=== PATIENT | female | born 1945 | race African-American/Black ===

== ENCOUNTER 2017-08-14 10:52 | Inpatient (IN) | payer MEDICARE, MEDICAID ==
[~2017-08-14] VITALS: Ht 172.7 cm; Wt 83.9 kg
[2017-08-14] MEDS ORDERED: SODIUM CHLORIDE 0.9% 1,000 ML IV ONE (13:00)
[2017-08-14 13:35] LABS: BASOPHILS % 0.6 % (0.0-2.0); CHLORIDE 102 mEq/L (98-107); EOSINOPHILS % 0.1 % (0.0-5.0); HEMATOCRIT. 44.1 % (36.0-48.0); HEMOGLOBIN. 14.6 g/dL (12.0-16.0); LYMPHOCYTES % 12.9 % (20.0-50.0); MEAN CORPUSCULAR HEMOGLOBIN 29.1 pg (28.0-32.0); MEAN CORPUSCULAR VOLUME 87.6 fL (81.0-99.0); MEAN PLATELET VOLUME 8.3 fl (7.4-10.4); MONOCYTES % 6.6 % (2.0-8.0); NEUTROPHILS % 79.8 % (40.0-76.0); PLATELET 217 x1000/uL (130-400); RED BLOOD CELL COUNT 5.03 mill/uL (4.2-5.4); RED CELL DISTRIBUTION WIDTH 14.7 % (11.6-14.6)
[2017-08-14 13:36] LABS: INR 1.2
[2017-08-14 14:20] LABS: HEPATITIS B SURFACE ANTIGEN NEGATIVE
[2017-08-14 14:49] LABS: HEPATITIS B CORE AB IGM NEGATIVE
[2017-08-14 14:50] LABS: HEPATITIS A AB IGM NEGATIVE (NEGATIVE)
[2017-08-14 17:19] LABS: CLARITY URINE CLEAR (CLEAR); COLOR URINE ORANGE (YELLOW); KETONES URINE 1+ (NEGATIVE); LEUKOCYTE ESTERASE URINE 1+ (NEGATIVE); NITRITE URINE NEGATIVE (NEGATIVE); OCCULT BLOOD URINE NEGATIVE (NEGATIVE); PROTEIN URINE TRACE (NEGATIVE); SPECIFIC GRAVITY URINE 1.023 (1.005-1.030)
[2017-08-14 17:36] LABS: *BARBITURATES SCREEN URINE NEGATIVE (NEGATIVE)
[2017-08-14 17:37] LABS: *AMPHETAMINES SCREEN URINE NEGATIVE (NEGATIVE); *BENZODIAZEPINES SCREEN URINE NEGATIVE (NEGATIVE); *COCAINE SCREEN URINE NEGATIVE (NEGATIVE); METHADONE URINE SCREEN NEGATIVE (NEGATIVE); OPIATES URINE SCREEN NEGATIVE (NEGATIVE); PHENCYCLIDINE URINE SCREEN NEGATIVE (NEGATIVE)
[2017-08-14 17:38] LABS: CANNABINOID URINE SCREEN NEGATIVE (NEGATIVE)
[2017-08-14] MEDS ORDERED: LEVOFLOXACIN 500MG PREMIX 100 ML IV ONE (18:45)
[2017-08-14 22:00] VITALS: BP 133/86
[2017-08-14 22:30] VITALS: BP 133/86
[2017-08-14] MEDS ORDERED: ASPI-1159 PO (22:38)
[2017-08-14] MEDS ORDERED: POTA-79 PO (23:35)
[2017-08-14] MEDS ORDERED: VALS320T15 PO (23:35)
[2017-08-14] MEDS ORDERED: INDO50CA2 PO (23:35)
[2017-08-14] MEDS ORDERED: AMLO10TA80 PO (23:35)
[2017-08-14] MEDS ORDERED: POTA8TAB4 PO (23:35)
[2017-08-14] MEDS ORDERED: IBUP-2030 PO (23:35)
[2017-08-14 23:56] VITALS: BP 104/65
[2017-08-15] MEDS ORDERED: DEXTROSE 50% WATER 50ML SYRINGE IV PRN
[2017-08-15] MEDS ORDERED: MAGNESIUM HYDROXIDE 400MG/5ML 30ML UDC PO PRN
[2017-08-15] MEDS: SODIUM CHLORIDE 0.45% 1,000 ML IV SCH ×2 (00:52→13:20)
[2017-08-15] MEDS ORDERED: MORPHINE SULFATE 4 MG/ML CPJ (NOT FOR IM USE) IV SCH (00:54)
[2017-08-15] MEDS ORDERED: ENOXAPARIN 100MG/ML SYR SUBCUT SCH (01:00)
[2017-08-15] MEDS: AZITHROMYCIN 500 MG in DEXT 5% WATER 250 ML IV SCH (02:33)
[2017-08-15 04:00] VITALS: BP 100/56
[2017-08-15 06:30] LABS: HEMATOCRIT. 36.2 % (36.0-48.0); MEAN CORPUSCULAR HEMOGLOBIN 29.2 pg (28.0-32.0); MEAN CORPUSCULAR VOLUME 87.9 fL (81.0-99.0); PLATELET 195 x1000/uL (130-400); RED BLOOD CELL COUNT 4.12 mill/uL (4.2-5.4); RED CELL DISTRIBUTION WIDTH 14.6 % (11.6-14.6)
[2017-08-15] MEDS: BLOOD SUGAR DIAGNOSTIC STRIP TEST SCH ×4 (06:30→22:01)
[2017-08-15 06:39] LABS: CHLORIDE 101 mEq/L (98-107)
[2017-08-15 07:58] VITALS: BP 99/63
[2017-08-15] MEDS ORDERED: MEDICATION NOT ON FORMULARY EA (Valsartan 320 MG) PO SCH (09:00)
[2017-08-15] MEDS: LOSARTAN POTASSIUM 100 MG TABLET PO SCH (09:00)
[2017-08-15] MEDS: AMLODIPINE 5MG TABLET PO SCH (09:58)
[2017-08-15 11:17] LABS: PLATELET ESTIMATE NORMAL
[2017-08-15] MEDS ORDERED: SODIUM CHLORIDE 10% FOR INH 15ML VIAL NEB INH SCH (11:30)
[2017-08-15 12:07] VITALS: BP 124/55
[2017-08-15 16:06] VITALS: BP 127/75
[2017-08-15] MEDS: PIPERACILLIN/TAZ 3.375G PREMIX 50 ML IV SCH (18:01)
[2017-08-15] MEDS: ENOXAPARIN 40MG/0.4ML SYR SUBCUT SCH (18:03)
[2017-08-15] MEDS ORDERED: LEVOFLOXACIN 500MG PREMIX 100 ML IV SCH (19:00)
[2017-08-15 19:38] VITALS: BP 115/66
[2017-08-16] VITALS: BP 99/61
[2017-08-16] MEDS: SODIUM CHLORIDE 0.45% 1,000 ML IV SCH ×3 (00:05→21:51)
[2017-08-16] MEDS: PIPERACILLIN/TAZ 3.375G PREMIX 50 ML IV SCH ×4 (00:05→23:38)
[2017-08-16] MEDS: AZITHROMYCIN 500 MG in DEXT 5% WATER 250 ML IV SCH (02:52)
[2017-08-16] MEDS: ONDANSETRON HCL 4MG/2ML VIAL IV PRN (03:48)
[2017-08-16 04:37] VITALS: BP 97/52
[2017-08-16] MEDS: BLOOD SUGAR DIAGNOSTIC STRIP TEST SCH ×4 (06:35→20:39)
[2017-08-16 07:49] VITALS: BP 96/61
[2017-08-16] MEDS: AMLODIPINE 5MG TABLET PO SCH (08:12)
[2017-08-16] MEDS: LOSARTAN POTASSIUM 100 MG TABLET PO SCH (08:13)
[2017-08-16 10:15] LABS: HEMATOCRIT. 36.7 % (36.0-48.0); MEAN CORPUSCULAR VOLUME 88.8 fL (81.0-99.0); PLATELET 198 x1000/uL (130-400); RED BLOOD CELL COUNT 4.13 mill/uL (4.2-5.4); RED CELL DISTRIBUTION WIDTH 14.4 % (11.6-14.6)
[2017-08-16] MEDS: ENOXAPARIN 40MG/0.4ML SYR SUBCUT SCH (14:00)
[2017-08-16 15:14] LABS: PLATELET ESTIMATE NORMAL
[2017-08-16 16:00] VITALS: BP 127/66
[2017-08-16 20:00] VITALS: BP 134/67
[2017-08-16] MEDS: NAPROXEN 500MG TABLET PO PRN (20:45)
[2017-08-16] MEDS: MORPHINE SULFATE 4 MG/ML CPJ (NOT FOR IM USE) IV PRN (22:08)
[2017-08-16 23:07] VITALS: BP 117/58
[2017-08-17] MEDS: AZITHROMYCIN 500 MG in DEXT 5% WATER 250 ML IV SCH (02:49)
[2017-08-17 05:03] VITALS: BP 97/53
[2017-08-17] MEDS: BLOOD SUGAR DIAGNOSTIC STRIP TEST SCH ×4 (06:26→21:00)
[2017-08-17 08:00] VITALS: BP 106/54
[2017-08-17 08:18] LABS: HEMATOCRIT. 34.1 % (36.0-48.0); HEMOGLOBIN. 11.2 g/dL (12.0-16.0); MEAN CORPUSCULAR HEMOGLOBIN 28.9 pg (28.0-32.0); MEAN CORPUSCULAR VOLUME 87.9 fL (81.0-99.0); PLATELET 197 x1000/uL (130-400); RED BLOOD CELL COUNT 3.88 mill/uL (4.2-5.4); RED CELL DISTRIBUTION WIDTH 14.3 % (11.6-14.6)
[2017-08-17] MEDS: LOSARTAN POTASSIUM 100 MG TABLET PO SCH (08:26)
[2017-08-17] MEDS: AMLODIPINE 5MG TABLET PO SCH (08:26)
[2017-08-17 08:27] LABS: PARTIAL THROMBOPLASTIN TIME 26.1 sec (23.4-31.0); PROTHROMBIN TIME 10.1 sec (9.4-11.6)
[2017-08-17] MEDS: PIPERACILLIN/TAZ 3.375G PREMIX 50 ML IV SCH (08:29)
[2017-08-17 10:37] LABS: PLATELET ESTIMATE NORMAL
[2017-08-17 12:00] VITALS: BP 108/62
[2017-08-17] MEDS: ENOXAPARIN 40MG/0.4ML SYR SUBCUT SCH (13:29)
[2017-08-17] MEDS ORDERED: IOHEXOL-300 100 ML BOTTLE ONE (15:31)
[2017-08-17] MEDS ORDERED: MIDAZOLAM HCL 2 MG/2 ML VIAL ONE (15:56)
[2017-08-17] MEDS ORDERED: FENTANYL CITRATE/PF 50MCG/ML 2ML VIAL ONE (15:56)
[2017-08-17] MEDS ORDERED: PROPOFOL 200MG/20ML VIAL IV ONE ×2 (15:56→16:45)
[2017-08-17] MEDS ORDERED: ATROPINE SULFATE 0.4MG/ML VIAL IV PRN (16:30)
[2017-08-17] MEDS ORDERED: FENTANYL CITRATE/PF 50MCG/ML 2ML VIAL IV PRN (16:30)
[2017-08-17] MEDS ORDERED: SODIUM CHLORIDE 0.9% 1,000 ML IV SCH (16:30)
[2017-08-17] MEDS ORDERED: MEPERIDINE HCL/PF 25MG/ML CPJ IV PRN (16:30)
[2017-08-17] MEDS ORDERED: ONDANSETRON HCL 4MG/2ML VIAL IV PRN (16:30)
[2017-08-17] MEDS: HYDROMORPHONE HCL/PF 2MG/ML CPJ IV PRN ×3 (18:40→19:11)
[2017-08-17] MEDS ORDERED: HYDROMORPHONE HCL/PF 2MG/ML CPJ ONE (18:42)
[2017-08-17 20:00] VITALS: BP 128/71
[2017-08-17] MEDS: ONDANSETRON HCL 4MG/2ML VIAL IV PRN (21:00)
[2017-08-17] MEDS: MORPHINE SULFATE 4 MG/ML CPJ (NOT FOR IM USE) IV PRN (23:51)
[2017-08-18] VITALS: BP 104/81
[2017-08-18] MEDS: PIPERACILLIN/TAZ 3.375G PREMIX 50 ML IV SCH ×5 (00:26→23:45)
[2017-08-18] MEDS: AZITHROMYCIN 500 MG in DEXT 5% WATER 250 ML IV SCH (03:05)
[2017-08-18 04:00] VITALS: BP 120/60
[2017-08-18] MEDS: MORPHINE SULFATE 4 MG/ML CPJ (NOT FOR IM USE) IV PRN ×3 (06:21→20:46)
[2017-08-18] MEDS: SODIUM CHLORIDE 0.45% 1,000 ML IV SCH ×3 (07:01→20:45)
[2017-08-18] MEDS: BLOOD SUGAR DIAGNOSTIC STRIP TEST SCH ×4 (07:20→20:44)
[2017-08-18 08:00] VITALS: BP 151/70
[2017-08-18] MEDS ORDERED: MORPHINE SULFATE 4 MG/ML CPJ (NOT FOR IM USE) IV PRN (08:30)
[2017-08-18] MEDS: LOSARTAN POTASSIUM 100 MG TABLET PO SCH (08:58)
[2017-08-18] MEDS: AMLODIPINE 5MG TABLET PO SCH (08:58)
[2017-08-18 12:46] VITALS: BP 147/74
[2017-08-18] MEDS: ENOXAPARIN 40MG/0.4ML SYR SUBCUT SCH (13:41)
[2017-08-18 16:00] VITALS: BP 141/76
[2017-08-18 20:00] VITALS: BP 158/84
[2017-08-18] MEDS: METRONIDAZOLE 500 MG PREMIX 100 ML IV SCH (20:45)
[2017-08-19] VITALS: BP 137/86
[2017-08-19] MEDS: AZITHROMYCIN 500 MG in DEXT 5% WATER 250 ML IV SCH (02:31)
[2017-08-19] MEDS: METRONIDAZOLE 500 MG PREMIX 100 ML IV SCH ×3 (05:28→21:17)
[2017-08-19] MEDS: BLOOD SUGAR DIAGNOSTIC STRIP TEST SCH ×4 (07:46→21:01)
[2017-08-19 08:31] VITALS: BP 144/83
[2017-08-19 08:36] LABS: CHLORIDE 103 mEq/L (98-107)
[2017-08-19] MEDS: PIPERACILLIN/TAZ 3.375G PREMIX 50 ML IV SCH ×2 (10:03→15:40)
[2017-08-19] MEDS: MORPHINE SULFATE 4 MG/ML CPJ (NOT FOR IM USE) IV PRN ×4 (10:04→21:24)
[2017-08-19] MEDS: LOSARTAN POTASSIUM 100 MG TABLET PO SCH (10:05)
[2017-08-19] MEDS: AMLODIPINE 5MG TABLET PO SCH (10:05)
[2017-08-19 10:25] LABS: INR 1.2; PARTIAL THROMBOPLASTIN TIME 27.8 sec (23.4-31.0); PROTHROMBIN TIME 12.7 sec (9.4-11.6)
[2017-08-19] MEDS ORDERED: DOCUSATE SODIUM 100MG CAPSULE PO PRN (11:30)
[2017-08-19 11:33] LABS: BASOPHILS % 0.2 % (0.0-2.0); EOSINOPHILS % 0.1 % (0.0-5.0); HEMATOCRIT. 42.4 % (36.0-48.0); HEMOGLOBIN. 13.9 g/dL (12.0-16.0); LYMPHOCYTES % 7.3 % (20.0-50.0); MEAN CORPUSCULAR HEMOGLOBIN 28.8 pg (28.0-32.0); MEAN CORPUSCULAR VOLUME 87.6 fL (81.0-99.0); MEAN PLATELET VOLUME 8.2 fl (7.4-10.4); NEUTROPHILS % 86.4 % (40.0-76.0); PLATELET 254 x1000/uL (130-400); RED BLOOD CELL COUNT 4.84 mill/uL (4.2-5.4)
[2017-08-19 12:57] VITALS: BP 140/76
[2017-08-19] MEDS: ENOXAPARIN 40MG/0.4ML SYR SUBCUT SCH (13:11)
[2017-08-19] MEDS: SODIUM CHLORIDE 0.45% 1,000 ML IV SCH (13:22)
[2017-08-19] MEDS ORDERED: DEXT 5% WATER + KCL 20MEQ/L 1,000 ML IV SCH (15:00)
[2017-08-19] MEDS: DEXT 5%/0.45% NACL KCL 20MEQ/L 1,000 ML IV SCH (16:50)
[2017-08-19 17:07] VITALS: BP 122/70
[2017-08-19 20:00] VITALS: BP 121/68
[2017-08-20] VITALS: BP 120/60
[2017-08-20] MEDS: PIPERACILLIN/TAZ 3.375G PREMIX 50 ML IV SCH ×3 (00:12→17:52)
[2017-08-20] MEDS: AZITHROMYCIN 500 MG in DEXT 5% WATER 250 ML IV SCH (03:09)
[2017-08-20] MEDS: MORPHINE SULFATE 4 MG/ML CPJ (NOT FOR IM USE) IV PRN ×3 (03:10→19:36)
[2017-08-20] MEDS: METRONIDAZOLE 500 MG PREMIX 100 ML IV SCH ×3 (05:14→22:34)
[2017-08-20] MEDS: BLOOD SUGAR DIAGNOSTIC STRIP TEST SCH ×4 (06:25→21:00)
[2017-08-20] MEDS: DEXT 5%/0.45% NACL KCL 20MEQ/L 1,000 ML IV SCH ×2 (07:51→22:34)
[2017-08-20 08:00] VITALS: BP 116/78
[2017-08-20] MEDS: AMLODIPINE 5MG TABLET PO SCH (08:00)
[2017-08-20] MEDS: LOSARTAN POTASSIUM 100 MG TABLET PO SCH (08:00)
[2017-08-20] MEDS ORDERED: LIDOCAINE HCL/PF 1% 10 MG/ML 5ML VIAL ONE (08:18)
[2017-08-20 10:09] VITALS: BP_SYST 88; BP_SYST 94; BP_DIAS 55; BP_DIAS 57
[2017-08-20 10:42] LABS: BG BASE EXCESS -3.4 mmol/L (-2.0-2.0); BG CARBOXYHEMOGLOBIN 0.9 % (0.5-1.5); BG DEOXYHEMOGLOBIN 3.6 % (0.0-5.0); BG FRACTION INSPIRED OXYGEN 28; BG HCO3 ACT 19.6 mmol/L (22.0-26.0); BG OXYGEN SATURATION 96.4 % (92.0-98.5); BG OXYHEMOGLOBIN 95.5 % (94.0-97.0); BG PCO2 29.6 mmHg (35.0-45.0); BG PH 7.438 (7.350-7.450); BG PO2 81.9 mmHg (75.0-100.0); BG SAMPLE SITE LEFT RADIAL; BG VENT MODE NASAL CANNULA
[2017-08-20] MEDS: SODIUM CHLORIDE 0.45% 1,000 ML IV SCH ×2 (11:28)
[2017-08-20 11:32] LABS: BASOPHILS % 0.4 % (0.0-2.0); EOSINOPHILS % 0.4 % (0.0-5.0); HEMATOCRIT. 29.8 % (36.0-48.0); LYMPHOCYTES % 8.8 % (20.0-50.0); MEAN CORPUSCULAR HEMOGLOBIN 29.2 pg (28.0-32.0); MEAN CORPUSCULAR VOLUME 87.4 fL (81.0-99.0); MEAN PLATELET VOLUME 7.7 fl (7.4-10.4); MONOCYTES % 6.7 % (2.0-8.0); NEUTROPHILS % 83.7 % (40.0-76.0); PLATELET 213 x1000/uL (130-400); RED BLOOD CELL COUNT 3.42 mill/uL (4.2-5.4); RED CELL DISTRIBUTION WIDTH 14.4 % (11.6-14.6)
[2017-08-20 11:44] VITALS: BP 111/63
[2017-08-20] MEDS ORDERED: SODIUM CHLORIDE 0.9% 500 ML IV ONE (11:45)
[2017-08-20 11:57] LABS: CHLORIDE 111 mEq/L (98-107)
[2017-08-20] MEDS ORDERED: LIDOCAINE HCL/PF 1% 2ML VIAL ONE (11:59)
[2017-08-20 12:04] LABS: AMYLASE 279 IU/L (25-115)
[2017-08-20] MEDS ORDERED: POTASSIUM CHLORIDE INJ 40 MEQ in DEXT 5% WATER 250 ML IV ONE (12:45)
[2017-08-20] MEDS: ENOXAPARIN 40MG/0.4ML SYR SUBCUT SCH (12:59)
[2017-08-20] MEDS: MORPHINE SULFATE 4 MG/ML CPJ (NOT FOR IM USE) IV NR ×2 (13:00→17:53)
[2017-08-20] MEDS ORDERED: KCL 20MEQ/100ML PREMIX 100 ML IV SCH (13:00)
[2017-08-20] MEDS ORDERED: CALCIUM CHLORIDE 1,000 MG in DEXT 5% WATER 90 ML IV NR (14:00)
[2017-08-20 16:00] VITALS: BP 103/62
[2017-08-20] MEDS: KCL 20MEQ/100ML PREMIX 100 ML IV SCH ×2 (17:52→19:33)
[2017-08-20 20:00] VITALS: BP 102/73
[2017-08-21] VITALS: BP 110/85
[2017-08-21] MEDS: PIPERACILLIN/TAZ 3.375G PREMIX 50 ML IV SCH ×4 (00:41→23:43)
[2017-08-21] MEDS: MORPHINE SULFATE 4 MG/ML CPJ (NOT FOR IM USE) IV PRN ×2 (01:10→06:13)
[2017-08-21] MEDS: SODIUM CHLORIDE 0.45% 1,000 ML IV SCH (02:40)
[2017-08-21] MEDS: AZITHROMYCIN 500 MG in DEXT 5% WATER 250 ML IV SCH (03:12)
[2017-08-21 04:00] VITALS: BP 106/60
[2017-08-21] MEDS: BLOOD SUGAR DIAGNOSTIC STRIP TEST SCH ×4 (05:53→21:00)
[2017-08-21] MEDS: METRONIDAZOLE 500 MG PREMIX 100 ML IV SCH ×3 (05:53→21:04)
[2017-08-21 06:17] LABS: BASOPHILS % 0.5 % (0.0-2.0); EOSINOPHILS % 1.7 % (0.0-5.0); HEMATOCRIT. 37.1 % (36.0-48.0); HEMOGLOBIN. 12.2 g/dL (12.0-16.0); LYMPHOCYTES % 8.9 % (20.0-50.0); MEAN CORPUSCULAR HEMOGLOBIN 28.7 pg (28.0-32.0); MEAN CORPUSCULAR VOLUME 87.4 fL (81.0-99.0); MEAN PLATELET VOLUME 7.8 fl (7.4-10.4); MONOCYTES % 7.2 % (2.0-8.0); NEUTROPHILS % 81.7 % (40.0-76.0); PLATELET 232 x1000/uL (130-400); RED BLOOD CELL COUNT 4.24 mill/uL (4.2-5.4); RED CELL DISTRIBUTION WIDTH 14.6 % (11.6-14.6)
[2017-08-21] MEDS: DEXT 5%/0.45% NACL KCL 20MEQ/L 1,000 ML IV SCH ×2 (06:28→08:46)
[2017-08-21 08:00] VITALS: BP 101/68
[2017-08-21] MEDS: AMLODIPINE 5MG TABLET PO SCH (08:44)
[2017-08-21] MEDS: LOSARTAN POTASSIUM 100 MG TABLET PO SCH (08:44)
[2017-08-21] MEDS: MORPHINE SULFATE 4 MG/ML CPJ (NOT FOR IM USE) IV NR ×3 (08:45→17:04)
[2017-08-21 12:00] VITALS: BP 112/63
[2017-08-21] MEDS: IPRATROPIUM/ALBUTEROL 0.5-3(2.5)MG/3ML NEB HHN SCH ×4 (13:03→23:54)
[2017-08-21 16:00] VITALS: BP 115/71
[2017-08-21 20:00] VITALS: BP 110/64
[2017-08-22] VITALS: BP 116/56
[2017-08-22] MEDS: IPRATROPIUM/ALBUTEROL 0.5-3(2.5)MG/3ML NEB HHN SCH ×7 (03:15→20:18)
[2017-08-22] MEDS: MORPHINE SULFATE 4 MG/ML CPJ (NOT FOR IM USE) IV PRN ×5 (03:56→18:50)
[2017-08-22 04:00] VITALS: BP 106/52
[2017-08-22] MEDS: METRONIDAZOLE 500 MG PREMIX 100 ML IV SCH ×3 (06:04→21:05)
[2017-08-22] MEDS: BLOOD SUGAR DIAGNOSTIC STRIP TEST SCH ×4 (06:06→21:13)
[2017-08-22 08:40] VITALS: BP 102/53
[2017-08-22] MEDS: PIPERACILLIN/TAZ 3.375G PREMIX 50 ML IV SCH ×3 (08:40→18:13)
[2017-08-22] MEDS: AMLODIPINE 5MG TABLET PO SCH (08:40)
[2017-08-22] MEDS: LOSARTAN POTASSIUM 100 MG TABLET PO SCH (08:43)
[2017-08-22 12:03] VITALS: BP 111/69
[2017-08-22] MEDS ORDERED: FUROSEMIDE 100MG/10ML VIAL IVP NR (12:45)
[2017-08-22] MEDS: DEXT 5%/0.45% NACL KCL 20MEQ/L 1,000 ML IV SCH (13:35)
[2017-08-22 13:49] LABS: HEMATOCRIT. 31.5 % (36.0-48.0); HEMOGLOBIN. 10.4 g/dL (12.0-16.0); MEAN CORPUSCULAR HEMOGLOBIN 28.6 pg (28.0-32.0); MEAN CORPUSCULAR VOLUME 87.1 fL (81.0-99.0); MEAN PLATELET VOLUME 7.7 fl (7.4-10.4); PLATELET 234 x1000/uL (130-400); RED BLOOD CELL COUNT 3.62 mill/uL (4.2-5.4)
[2017-08-22 13:55] LABS: INR 1.2; PARTIAL THROMBOPLASTIN TIME 31.9 sec (23.4-31.0); PROTHROMBIN TIME 12.7 sec (9.4-11.6)
[2017-08-22 14:15] LABS: PLATELET ESTIMATE NORMAL
[2017-08-22 17:07] VITALS: BP 107/66
[2017-08-22 20:00] VITALS: BP 112/71
[2017-08-23] VITALS: BP 113/68
[2017-08-23] MEDS: MORPHINE SULFATE 4 MG/ML CPJ (NOT FOR IM USE) IV PRN (00:28)
[2017-08-23] MEDS: IPRATROPIUM/ALBUTEROL 0.5-3(2.5)MG/3ML NEB HHN SCH ×6 (00:42→19:46)
[2017-08-23] MEDS: NAPROXEN 500MG TABLET PO PRN (02:09)
[2017-08-23] MEDS: PIPERACILLIN/TAZ 3.375G PREMIX 50 ML IV SCH ×3 (02:09→17:34)
[2017-08-23 04:00] VITALS: BP 108/63
[2017-08-23] MEDS: DEXT 5%/0.45% NACL KCL 20MEQ/L 1,000 ML IV SCH ×2 (05:22→17:34)
[2017-08-23] MEDS: METRONIDAZOLE 500 MG PREMIX 100 ML IV SCH ×3 (05:22→21:45)
[2017-08-23] MEDS: BLOOD SUGAR DIAGNOSTIC STRIP TEST SCH ×4 (07:13→21:45)
[2017-08-23 07:56] VITALS: BP 102/58
[2017-08-23] MEDS: AMLODIPINE 5MG TABLET PO SCH (09:00)
[2017-08-23 10:12] LABS: HEMOGLOBIN. 10.4 g/dL (12.0-16.0); MEAN CORPUSCULAR HEMOGLOBIN 28.2 pg (28.0-32.0); MEAN CORPUSCULAR VOLUME 86.9 fL (81.0-99.0); MEAN PLATELET VOLUME 7.7 fl (7.4-10.4); PLATELET 249 x1000/uL (130-400); RED BLOOD CELL COUNT 3.68 mill/uL (4.2-5.4); RED CELL DISTRIBUTION WIDTH 15.2 % (11.6-14.6)
[2017-08-23] MEDS: LOSARTAN POTASSIUM 100 MG TABLET PO SCH (10:15)
[2017-08-23 11:42] LABS: PLATELET ESTIMATE NORMAL
[2017-08-23 12:23] VITALS: BP 110/65
[2017-08-23 15:46] VITALS: BP 129/76
[2017-08-23 20:00] VITALS: BP 122/65
[2017-08-23] MEDS ORDERED: TOTAL PARENTERAL NUTRITION IV SCH ×2 (21:00)
[2017-08-24] VITALS (7 sets, daily range): BP systolic 117–164; BP diastolic 67–85
[2017-08-24] MEDS: IPRATROPIUM/ALBUTEROL 0.5-3(2.5)MG/3ML NEB HHN SCH ×6 (00:12→20:48)
[2017-08-24] MEDS: PIPERACILLIN/TAZ 3.375G PREMIX 50 ML IV SCH ×3 (02:19→18:07)
[2017-08-24] MEDS: METRONIDAZOLE 500 MG PREMIX 100 ML IV SCH ×3 (05:30→23:06)
[2017-08-24] MEDS: BLOOD SUGAR DIAGNOSTIC STRIP TEST SCH ×4 (06:35→20:41)
[2017-08-24 07:28] LABS: HEMATOCRIT. 35.9 % (36.0-48.0); HEMOGLOBIN. 11.7 g/dL (12.0-16.0); MEAN CORPUSCULAR HEMOGLOBIN 28.4 pg (28.0-32.0); MEAN CORPUSCULAR VOLUME 87.1 fL (81.0-99.0); MEAN PLATELET VOLUME 7.6 fl (7.4-10.4); PLATELET 251 x1000/uL (130-400); RED BLOOD CELL COUNT 4.13 mill/uL (4.2-5.4); RED CELL DISTRIBUTION WIDTH 15.2 % (11.6-14.6)
[2017-08-24 07:56] LABS: PHOSPHORUS 1.3 mg/dL (2.5-4.9)
[2017-08-24 09:13] LABS: PLATELET ESTIMATE NORMAL
[2017-08-24] MEDS: LOSARTAN POTASSIUM 100 MG TABLET PO SCH (09:36)
[2017-08-24] MEDS: AMLODIPINE 5MG TABLET PO SCH (09:37)
[2017-08-24] MEDS ORDERED: FUROSEMIDE 40MG/4ML VIAL IVP NR (16:00)
[2017-08-24] MEDS: DILTIAZEM HCL 30MG TABLET PO SCH (18:08)
[2017-08-24] MEDS: INSULIN LISPRO 100 UNITS/ML SUBCUT SCH ×3 (18:10→21:30)
[2017-08-24] MEDS: TOTAL PARENTERAL NUTRITION IV SCH (21:31)
[2017-08-25 00:03] VITALS: BP 139/70
[2017-08-25] MEDS: IPRATROPIUM/ALBUTEROL 0.5-3(2.5)MG/3ML NEB HHN SCH ×6 (00:35→20:40)
[2017-08-25] MEDS: DILTIAZEM HCL 30MG TABLET PO SCH ×4 (00:40→18:52)
[2017-08-25] MEDS: PIPERACILLIN/TAZ 3.375G PREMIX 50 ML IV SCH ×3 (02:21→18:52)
[2017-08-25 04:42] VITALS: BP 144/81
[2017-08-25] MEDS: METRONIDAZOLE 500 MG PREMIX 100 ML IV SCH ×2 (06:22→13:58)
[2017-08-25] MEDS: BLOOD SUGAR DIAGNOSTIC STRIP TEST SCH ×4 (06:22→21:31)
[2017-08-25] MEDS: INSULIN LISPRO 100 UNITS/ML SUBCUT SCH ×4 (06:59→21:40)
[2017-08-25 07:33] VITALS: BP 142/71
[2017-08-25 09:21] LABS: BASOPHILS % 0.7 % (0.0-2.0); EOSINOPHILS % 1.9 % (0.0-5.0); HEMATOCRIT. 33.9 % (36.0-48.0); HEMOGLOBIN. 11.1 g/dL (12.0-16.0); LYMPHOCYTES % 8.1 % (20.0-50.0); MEAN CORPUSCULAR HEMOGLOBIN 28.6 pg (28.0-32.0); MEAN CORPUSCULAR VOLUME 87.2 fL (81.0-99.0); MONOCYTES % 10.7 % (2.0-8.0); NEUTROPHILS % 78.6 % (40.0-76.0); PLATELET 223 x1000/uL (130-400); RED BLOOD CELL COUNT 3.88 mill/uL (4.2-5.4); RED CELL DISTRIBUTION WIDTH 15.4 % (11.6-14.6)
[2017-08-25] MEDS: LOSARTAN POTASSIUM 100 MG TABLET PO SCH (09:25)
[2017-08-25 11:49] VITALS: BP 148/84
[2017-08-25] MEDS ORDERED: SODIUM CHLORIDE 0.45% 1,000 ML IV SCH ×2 (12:30→16:45)
[2017-08-25] MEDS ORDERED: CLONIDINE 0.1MG TABLET PO PRN (12:45)
[2017-08-25] MEDS ORDERED: CLONIDINE 0.2MG TABLET PO PRN (12:45)
[2017-08-25 15:37] VITALS: BP 141/81
[2017-08-25 20:42] VITALS: BP 132/75
[2017-08-25] MEDS: TOTAL PARENTERAL NUTRITION IV SCH (21:00)
[2017-08-25] MEDS ORDERED: TOTAL PARENTERAL NUTRITION IV SCH (21:00)
[2017-08-26] VITALS: BP 146/76
[2017-08-26] MEDS: IPRATROPIUM/ALBUTEROL 0.5-3(2.5)MG/3ML NEB HHN SCH ×6 (00:51→21:45)
[2017-08-26] MEDS: DILTIAZEM HCL 30MG TABLET PO SCH ×4 (00:54→18:29)
[2017-08-26] MEDS ORDERED: PIPERACILLIN/TAZ 3.375G PREMIX 50 ML IV SCH (03:00)
[2017-08-26] MEDS: PIPERACILLIN/TAZ 2.25G PREMIX 50 ML IV SCH ×3 (03:32→18:28)
[2017-08-26 04:20] VITALS: BP 110/62
[2017-08-26 06:37] LABS: BASOPHILS % 0.4 % (0.0-2.0); HEMATOCRIT. 31.9 % (36.0-48.0); HEMOGLOBIN. 10.7 g/dL (12.0-16.0); LYMPHOCYTES % 9.7 % (20.0-50.0); MEAN CORPUSCULAR VOLUME 86.6 fL (81.0-99.0); MEAN PLATELET VOLUME 7.9 fl (7.4-10.4); MONOCYTES % 10.6 % (2.0-8.0); NEUTROPHILS % 77.3 % (40.0-76.0); PLATELET 217 x1000/uL (130-400); RED BLOOD CELL COUNT 3.69 mill/uL (4.2-5.4); RED CELL DISTRIBUTION WIDTH 15.5 % (11.6-14.6)
[2017-08-26] MEDS: BLOOD SUGAR DIAGNOSTIC STRIP TEST SCH ×4 (06:46→21:00)
[2017-08-26] MEDS: INSULIN LISPRO 100 UNITS/ML SUBCUT SCH ×4 (07:01→22:23)
[2017-08-26 08:00] VITALS: BP 122/68
[2017-08-26] MEDS: LOSARTAN POTASSIUM 100 MG TABLET PO SCH (09:01)
[2017-08-26 12:00] VITALS: BP 143/72
[2017-08-26 16:00] VITALS: BP 159/80
[2017-08-26 20:03] VITALS: BP 139/80
[2017-08-26] MEDS ORDERED: TOTAL PARENTERAL NUTRITION IV SCH (21:00)
[2017-08-27 00:03] VITALS: BP 129/69
[2017-08-27] MEDS: IPRATROPIUM/ALBUTEROL 0.5-3(2.5)MG/3ML NEB HHN SCH ×6 (00:57→20:07)
[2017-08-27] MEDS: PIPERACILLIN/TAZ 2.25G PREMIX 50 ML IV SCH ×3 (02:15→18:47)
[2017-08-27 05:34] VITALS: BP 128/69
[2017-08-27] MEDS: BLOOD SUGAR DIAGNOSTIC STRIP TEST SCH ×4 (07:04→20:00)
[2017-08-27] MEDS: DILTIAZEM HCL 30MG TABLET PO SCH ×4 (07:05→18:47)
[2017-08-27 07:24] VITALS: BP 139/77
[2017-08-27 08:42] LABS: BASOPHILS % 0.3 % (0.0-2.0); EOSINOPHILS % 2.3 % (0.0-5.0); HEMATOCRIT. 32.2 % (36.0-48.0); HEMOGLOBIN. 10.5 g/dL (12.0-16.0); LYMPHOCYTES % 9.8 % (20.0-50.0); MEAN CORPUSCULAR HEMOGLOBIN 28.3 pg (28.0-32.0); MEAN CORPUSCULAR VOLUME 86.6 fL (81.0-99.0); MEAN PLATELET VOLUME 7.9 fl (7.4-10.4); MONOCYTES % 9.3 % (2.0-8.0); NEUTROPHILS % 78.3 % (40.0-76.0); PLATELET 249 x1000/uL (130-400); RED BLOOD CELL COUNT 3.72 mill/uL (4.2-5.4); RED CELL DISTRIBUTION WIDTH 15.3 % (11.6-14.6)
[2017-08-27] MEDS: LOSARTAN POTASSIUM 100 MG TABLET PO SCH (10:56)
[2017-08-27] MEDS: INSULIN LISPRO 100 UNITS/ML SUBCUT SCH ×2 (10:58→13:07)
[2017-08-27 11:58] VITALS: BP 165/88
[2017-08-27 15:40] VITALS: BP 157/85
[2017-08-27] MEDS ORDERED: IPRATROPIUM/ALBUTEROL 0.5-3(2.5)MG/3ML NEB HHN SCH (16:00)
[2017-08-27 16:33] LABS: BG BASE EXCESS -7.1 mmol/L (-2.0-2.0); BG CARBOXYHEMOGLOBIN 0.3 % (0.5-1.5); BG DEOXYHEMOGLOBIN 6.2 % (0.0-5.0); BG FRACTION INSPIRED OXYGEN 28; BG HCO3 ACT 15.7 mmol/L (22.0-26.0); BG METHEMOGLOBIN 0.1 % (0.0-1.5); BG OXYGEN SATURATION 93.8 % (92.0-98.5); BG OXYHEMOGLOBIN 93.4 % (94.0-97.0); BG PCO2 24.3 mmHg (35.0-45.0); BG PH 7.427 (7.350-7.450); BG PO2 69.8 mmHg (75.0-100.0); BG SAMPLE SITE RIGHT RADIAL; BG TOTAL HEMOGLOBIN 11.9 g/dL (12.0-18.0); BG VENT MODE NASAL CANNULA
[2017-08-27] MEDS ORDERED: IPRATROPIUM/ALBUTEROL 0.5-3(2.5)MG/3ML NEB HHN PRN (18:15)
[2017-08-27] MEDS: INSULIN REGULAR HUMAN (HIGH DOSE) 100 UNITS/ML 3ML VIAL SUBCUT SCH (18:54)
[2017-08-27 19:10] LABS: PHOSPHORUS 2.7 mg/dL (2.5-4.9)
[2017-08-27 20:00] VITALS: BP 128/80
[2017-08-27] MEDS ORDERED: TOTAL PARENTERAL NUTRITION IV SCH (21:00)
[2017-08-28] VITALS: BP 139/75
[2017-08-28] MEDS: BLOOD SUGAR DIAGNOSTIC STRIP TEST SCH ×2 (00:23→06:35)
[2017-08-28] MEDS: DILTIAZEM HCL 30MG TABLET PO SCH ×4 (00:24→17:53)
[2017-08-28] MEDS: INSULIN REGULAR HUMAN (HIGH DOSE) 100 UNITS/ML 3ML VIAL SUBCUT SCH ×2 (00:28→06:39)
[2017-08-28] MEDS: IPRATROPIUM/ALBUTEROL 0.5-3(2.5)MG/3ML NEB HHN SCH ×6 (00:41→20:45)
[2017-08-28] MEDS: PIPERACILLIN/TAZ 2.25G PREMIX 50 ML IV SCH ×3 (03:00→17:52)
[2017-08-28 04:00] VITALS: BP 153/80
[2017-08-28 08:00] VITALS: BP 142/76
[2017-08-28] MEDS ORDERED: LIDOCAINE HCL/PF 1% 10 MG/ML 5ML VIAL ONE (08:07)
[2017-08-28 08:38] LABS: BASOPHILS % 0.6 % (0.0-2.0); EOSINOPHILS % 1.9 % (0.0-5.0); HEMATOCRIT. 32.5 % (36.0-48.0); HEMOGLOBIN. 10.7 g/dL (12.0-16.0); LYMPHOCYTES % 9.4 % (20.0-50.0); MEAN CORPUSCULAR HEMOGLOBIN 28.2 pg (28.0-32.0); MEAN CORPUSCULAR VOLUME 86.1 fL (81.0-99.0); MEAN PLATELET VOLUME 8.1 fl (7.4-10.4); MONOCYTES % 6.9 % (2.0-8.0); NEUTROPHILS % 81.2 % (40.0-76.0); PLATELET 258 x1000/uL (130-400); RED BLOOD CELL COUNT 3.78 mill/uL (4.2-5.4); RED CELL DISTRIBUTION WIDTH 15.4 % (11.6-14.6)
[2017-08-28 08:49] LABS: PHOSPHORUS 2.5 mg/dL (2.5-4.9)
[2017-08-28] MEDS: LOSARTAN POTASSIUM 100 MG TABLET PO SCH (09:00)
[2017-08-28] MEDS: ENOXAPARIN 40MG/0.4ML SYR SUBCUT SCH (10:42)
[2017-08-28] MEDS: LACTOBACILLUS GG CAPSULE PO SCH (10:43)
[2017-08-28 11:24] VITALS: BP 173/91
[2017-08-28] MEDS: INSULIN REGULAR (HUMULIN R) 300UNITS/3ML SUBCUT SCH ×3 (11:24→20:40)
[2017-08-28] MEDS ORDERED: HEPARIN SODIUM 1,000 UNIT/1ML VIAL IV NR (12:45)
[2017-08-28 15:54] VITALS: BP 129/71
[2017-08-28 20:00] VITALS: BP 140/73
[2017-08-28] MEDS ORDERED: TOTAL PARENTERAL NUTRITION IV SCH (21:00)
[2017-08-29] VITALS (7 sets, daily range): BP systolic 116–151; BP diastolic 61–83
[2017-08-29] MEDS: INSULIN REGULAR (HUMULIN R) 300UNITS/3ML SUBCUT SCH ×7 (00:07→22:11)
[2017-08-29] MEDS: INSULIN NPH (HUMULIN-N) 100 UNITS/ML 3ML VIAL SUBCUT SCH ×3 (00:08→22:10)
[2017-08-29] MEDS: DILTIAZEM HCL 30MG TABLET PO SCH ×4 (00:17→19:07)
[2017-08-29] MEDS: IPRATROPIUM/ALBUTEROL 0.5-3(2.5)MG/3ML NEB HHN SCH ×6 (01:24→20:24)
[2017-08-29] MEDS: PIPERACILLIN/TAZ 2.25G PREMIX 50 ML IV SCH ×3 (02:08→19:32)
[2017-08-29 07:36] LABS: BASOPHILS % 0.5 % (0.0-2.0); EOSINOPHILS % 2.3 % (0.0-5.0); HEMATOCRIT. 32.7 % (36.0-48.0); HEMOGLOBIN. 10.9 g/dL (12.0-16.0); LYMPHOCYTES % 10.9 % (20.0-50.0); MEAN CORPUSCULAR HEMOGLOBIN 28.5 pg (28.0-32.0); MEAN PLATELET VOLUME 8.1 fl (7.4-10.4); MONOCYTES % 7.9 % (2.0-8.0); NEUTROPHILS % 78.4 % (40.0-76.0); PLATELET 203 x1000/uL (130-400); RED BLOOD CELL COUNT 3.84 mill/uL (4.2-5.4)
[2017-08-29 07:51] LABS: PHOSPHORUS 3.4 mg/dL (2.5-4.9)
[2017-08-29 08:09] LABS: AMYLASE 211 IU/L (25-115)
[2017-08-29] MEDS: ENOXAPARIN 40MG/0.4ML SYR SUBCUT SCH (09:58)
[2017-08-29] MEDS: LACTOBACILLUS GG CAPSULE PO SCH (09:59)
[2017-08-29] MEDS: LOSARTAN POTASSIUM 100 MG TABLET PO SCH (09:59)
[2017-08-29] MEDS ORDERED: INSULIN REGULAR (HUMULIN R) 300UNITS/3ML SUBCUT SCH (16:00)
[2017-08-29] MEDS ORDERED: MORPHINE SULFATE 4 MG/ML CPJ (NOT FOR IM USE) IV PRN (16:30)
[2017-08-29] MEDS: BLOOD SUGAR DIAGNOSTIC STRIP TEST SCH (20:00)
[2017-08-29] MEDS ORDERED: TOTAL PARENTERAL NUTRITION IV SCH (21:00)
[2017-08-30 00:14] VITALS: BP 129/72
[2017-08-30] MEDS: DILTIAZEM HCL 60MG TABLET PO SCH ×4 (00:23→18:08)
[2017-08-30] MEDS: IPRATROPIUM/ALBUTEROL 0.5-3(2.5)MG/3ML NEB HHN SCH ×6 (00:37→20:37)
[2017-08-30] MEDS: BLOOD SUGAR DIAGNOSTIC STRIP TEST SCH ×6 (00:38→22:00)
[2017-08-30] MEDS: INSULIN REGULAR (HUMULIN R) 300UNITS/3ML SUBCUT SCH ×6 (00:39→22:02)
[2017-08-30] MEDS: PIPERACILLIN/TAZ 2.25G PREMIX 50 ML IV SCH ×3 (02:30→18:08)
[2017-08-30 04:00] VITALS: BP 141/71
[2017-08-30 07:12] LABS: BASOPHILS % 0.8 % (0.0-2.0); EOSINOPHILS % 3.2 % (0.0-5.0); HEMATOCRIT. 30.6 % (36.0-48.0); HEMOGLOBIN. 10.4 g/dL (12.0-16.0); LYMPHOCYTES % 14.1 % (20.0-50.0); MEAN CORPUSCULAR VOLUME 85.2 fL (81.0-99.0); MEAN PLATELET VOLUME 7.9 fl (7.4-10.4); MONOCYTES % 10.1 % (2.0-8.0); NEUTROPHILS % 71.8 % (40.0-76.0); PLATELET 129 x1000/uL (130-400); RED BLOOD CELL COUNT 3.59 mill/uL (4.2-5.4); RED CELL DISTRIBUTION WIDTH 15.2 % (11.6-14.6)
[2017-08-30 07:22] VITALS: BP 137/68
[2017-08-30] MEDS: LOSARTAN POTASSIUM 100 MG TABLET PO SCH (08:05)
[2017-08-30] MEDS: LACTOBACILLUS GG CAPSULE PO SCH (08:05)
[2017-08-30] MEDS: INSULIN NPH (HUMULIN-N) 100 UNITS/ML 3ML VIAL SUBCUT SCH ×2 (09:11→21:00)
[2017-08-30] MEDS: ENOXAPARIN 40MG/0.4ML SYR SUBCUT SCH (09:12)
[2017-08-30 11:28] VITALS: BP 133/84
[2017-08-30 16:03] VITALS: BP 144/76
[2017-08-30] MEDS: SODIUM CHLORIDE 0.45% 1,000 ML IV SCH (17:03)
[2017-08-30 19:54] VITALS: BP 130/72
[2017-08-30] MEDS ORDERED: TOTAL PARENTERAL NUTRITION IV SCH (21:00)
[2017-08-31] MEDS: BLOOD SUGAR DIAGNOSTIC STRIP TEST SCH ×7 (00:01→23:39)
[2017-08-31] MEDS: DILTIAZEM HCL 60MG TABLET PO SCH ×5 (00:01→23:33)
[2017-08-31 00:04] VITALS: BP 133/76
[2017-08-31] MEDS: IPRATROPIUM/ALBUTEROL 0.5-3(2.5)MG/3ML NEB HHN SCH ×6 (00:15→20:11)
[2017-08-31] MEDS: PIPERACILLIN/TAZ 2.25G PREMIX 50 ML IV SCH ×3 (02:10→21:24)
[2017-08-31 04:00] VITALS: BP 113/85
[2017-08-31] MEDS: INSULIN REGULAR (HUMULIN R) 300UNITS/3ML SUBCUT SCH ×7 (04:00→23:39)
[2017-08-31 07:54] LABS: BASOPHILS % 0.6 % (0.0-2.0); EOSINOPHILS % 3.7 % (0.0-5.0); HEMOGLOBIN. 10.3 g/dL (12.0-16.0); LYMPHOCYTES % 15.9 % (20.0-50.0); MEAN CORPUSCULAR HEMOGLOBIN 28.6 pg (28.0-32.0); MEAN CORPUSCULAR VOLUME 86.3 fL (81.0-99.0); MEAN PLATELET VOLUME 7.9 fl (7.4-10.4); MONOCYTES % 8.3 % (2.0-8.0); NEUTROPHILS % 71.5 % (40.0-76.0); PLATELET 144 x1000/uL (130-400); RED BLOOD CELL COUNT 3.59 mill/uL (4.2-5.4); RED CELL DISTRIBUTION WIDTH 14.7 % (11.6-14.6)
[2017-08-31 08:00] VITALS: BP 130/78
[2017-08-31] MEDS: LOSARTAN POTASSIUM 100 MG TABLET PO SCH (08:59)
[2017-08-31] MEDS: TRAMADOL 50MG TABLET PO PRN (08:59)
[2017-08-31] MEDS: LACTOBACILLUS GG CAPSULE PO SCH (08:59)
[2017-08-31] MEDS: INSULIN NPH (HUMULIN-N) 100 UNITS/ML 3ML VIAL SUBCUT SCH ×2 (09:04→21:09)
[2017-08-31 09:14] LABS: CHLORIDE 105 mEq/L (98-107)
[2017-08-31 09:38] LABS: AMYLASE 153 IU/L (25-115)
[2017-08-31 09:40] LABS: PHOSPHORUS 2.5 mg/dL (2.5-4.9)
[2017-08-31 12:00] VITALS: BP 142/90
[2017-08-31] MEDS: SODIUM CHLORIDE 0.45% 1,000 ML IV SCH (15:59)
[2017-08-31 16:00] VITALS: BP 132/82
[2017-08-31] MEDS ORDERED: MAGNESIUM 1 G PREMIX 100 ML IV NR (16:00)
[2017-08-31 20:00] VITALS: BP 142/79
[2017-08-31] MEDS ORDERED: TOTAL PARENTERAL NUTRITION IV SCH (21:00)
[2017-09-01] VITALS (7 sets, daily range): BP systolic 119–157; BP diastolic 61–89
[2017-09-01] MEDS: IPRATROPIUM/ALBUTEROL 0.5-3(2.5)MG/3ML NEB HHN SCH ×6 (00:05→21:11)
[2017-09-01] MEDS: PIPERACILLIN/TAZ 2.25G PREMIX 50 ML IV SCH ×2 (04:07→11:08)
[2017-09-01] MEDS: INSULIN REGULAR (HUMULIN R) 300UNITS/3ML SUBCUT SCH ×6 (04:18→23:52)
[2017-09-01] MEDS: BLOOD SUGAR DIAGNOSTIC STRIP TEST SCH ×6 (04:19→23:54)
[2017-09-01] MEDS: DILTIAZEM HCL 60MG TABLET PO SCH (06:11)
[2017-09-01] MEDS: LOSARTAN POTASSIUM 100 MG TABLET PO SCH (08:57)
[2017-09-01] MEDS: LACTOBACILLUS GG CAPSULE PO SCH (08:57)
[2017-09-01] MEDS: INSULIN NPH (HUMULIN-N) 100 UNITS/ML 3ML VIAL SUBCUT SCH ×2 (09:08→21:04)
[2017-09-01 10:29] LABS: BASOPHILS % 1.3 % (0.0-2.0); EOSINOPHILS % 5.9 % (0.0-5.0); HEMATOCRIT. 31.4 % (36.0-48.0); HEMOGLOBIN. 10.3 g/dL (12.0-16.0); LYMPHOCYTES % 20.5 % (20.0-50.0); MEAN CORPUSCULAR HEMOGLOBIN 28.6 pg (28.0-32.0); MEAN CORPUSCULAR VOLUME 87.2 fL (81.0-99.0); MEAN PLATELET VOLUME 7.4 fl (7.4-10.4); MONOCYTES % 7.9 % (2.0-8.0); NEUTROPHILS % 64.4 % (40.0-76.0); PLATELET 146 x1000/uL (130-400); RED CELL DISTRIBUTION WIDTH 14.7 % (11.6-14.6)
[2017-09-01 11:00] LABS: PHOSPHORUS 2.6 mg/dL (2.5-4.9)
[2017-09-01 11:06] LABS: CHLORIDE 104 mEq/L (98-107)
[2017-09-01] MEDS: PIPERACILLIN/TAZ 3.375G PREMIX 50 ML IV SCH ×2 (18:23→23:51)
[2017-09-01] MEDS: DILTIAZEM HCL 90MG TABLET PO SCH ×2 (18:23→23:51)
[2017-09-01] MEDS ORDERED: MAGNESIUM 1 G PREMIX 100 ML IV NR (20:00)
[2017-09-01] MEDS: ONDANSETRON HCL 4MG/2ML VIAL IV PRN (20:49)
[2017-09-01] MEDS: TRAMADOL 50MG TABLET PO PRN (20:59)
[2017-09-01] MEDS: SODIUM CHLORIDE 0.45% 1,000 ML IV SCH (21:00)
[2017-09-01] MEDS ORDERED: TOTAL PARENTERAL NUTRITION IV SCH (21:00)
[2017-09-01] MEDS ORDERED: DEXT 10% WATER 1,000 ML IV SCH (21:00)
[2017-09-02] MEDS: IPRATROPIUM/ALBUTEROL 0.5-3(2.5)MG/3ML NEB HHN SCH ×6 (00:17→19:45)
[2017-09-02] MEDS: DILTIAZEM HCL 90MG TABLET PO SCH ×3 (04:43→18:35)
[2017-09-02] MEDS: INSULIN REGULAR (HUMULIN R) 300UNITS/3ML SUBCUT SCH ×5 (04:49→22:19)
[2017-09-02] MEDS: BLOOD SUGAR DIAGNOSTIC STRIP TEST SCH ×5 (04:50→20:00)
[2017-09-02 05:30] VITALS: BP 111/60
[2017-09-02 08:00] VITALS: BP 126/68
[2017-09-02] MEDS: LOSARTAN POTASSIUM 100 MG TABLET PO SCH (09:51)
[2017-09-02] MEDS: LACTOBACILLUS GG CAPSULE PO SCH (09:54)
[2017-09-02] MEDS: INSULIN NPH (HUMULIN-N) 100 UNITS/ML 3ML VIAL SUBCUT SCH ×2 (10:22→22:18)
[2017-09-02 11:04] LABS: CHLORIDE 103 mEq/L (98-107)
[2017-09-02 11:19] LABS: PHOSPHORUS 2.9 mg/dL (2.5-4.9)
[2017-09-02 12:00] VITALS: BP 141/72
[2017-09-02] MEDS: PIPERACILLIN/TAZ 3.375G PREMIX 50 ML IV SCH ×2 (13:00→22:13)
[2017-09-02] MEDS: SODIUM CHLORIDE 0.45% 1,000 ML IV SCH (15:45)
[2017-09-02 16:00] VITALS: BP 135/74
[2017-09-02 20:40] VITALS: BP 138/76
[2017-09-02] MEDS ORDERED: TOTAL PARENTERAL NUTRITION IV SCH (21:00)
[2017-09-02] MEDS ORDERED: MAGNESIUM 2 G PREMIX 50 ML IV ONE (21:15)
[2017-09-02] MEDS ORDERED: MAGNESIUM 1 G PREMIX 100 ML IV NR (23:00)
[2017-09-03] VITALS: BP 133/82
[2017-09-03] MEDS: IPRATROPIUM/ALBUTEROL 0.5-3(2.5)MG/3ML NEB HHN SCH ×7 (00:30→23:12)
[2017-09-03] MEDS ORDERED: MAGNESIUM 1 G PREMIX 100 ML IV NR (01:00)
[2017-09-03] MEDS: DILTIAZEM HCL 90MG TABLET PO SCH ×4 (01:56→18:59)
[2017-09-03] MEDS: INSULIN REGULAR (HUMULIN R) 300UNITS/3ML SUBCUT SCH ×6 (02:06→20:00)
[2017-09-03 04:00] VITALS: BP 142/70
[2017-09-03] MEDS: BLOOD SUGAR DIAGNOSTIC STRIP TEST SCH ×6 (04:00→20:45)
[2017-09-03 07:42] LABS: BASOPHILS % 1.1 % (0.0-2.0); EOSINOPHILS % 4.3 % (0.0-5.0); HEMATOCRIT. 31.1 % (36.0-48.0); HEMOGLOBIN. 10.2 g/dL (12.0-16.0); LYMPHOCYTES % 27.3 % (20.0-50.0); MEAN CORPUSCULAR HEMOGLOBIN 28.7 pg (28.0-32.0); MEAN CORPUSCULAR VOLUME 87.1 fL (81.0-99.0); MEAN PLATELET VOLUME 7.7 fl (7.4-10.4); MONOCYTES % 9.7 % (2.0-8.0); NEUTROPHILS % 57.6 % (40.0-76.0); PLATELET 133 x1000/uL (130-400); RED BLOOD CELL COUNT 3.57 mill/uL (4.2-5.4); RED CELL DISTRIBUTION WIDTH 14.7 % (11.6-14.6)
[2017-09-03 08:43] LABS: CHLORIDE 104 mEq/L (98-107)
[2017-09-03 08:46] VITALS: BP 140/76
[2017-09-03] MEDS: INSULIN NPH (HUMULIN-N) 100 UNITS/ML 3ML VIAL SUBCUT SCH ×2 (09:00→20:55)
[2017-09-03] MEDS: LOSARTAN POTASSIUM 100 MG TABLET PO SCH (09:58)
[2017-09-03] MEDS: LACTOBACILLUS GG CAPSULE PO SCH (09:58)
[2017-09-03 12:40] VITALS: BP 161/85
[2017-09-03] MEDS: SODIUM CHLORIDE 0.45% 1,000 ML IV SCH (15:45)
[2017-09-03 16:12] VITALS: BP 138/74
[2017-09-03 20:13] VITALS: BP 114/75
[2017-09-03] MEDS: NAPROXEN 500MG TABLET PO PRN (20:53)
[2017-09-03] MEDS: TOTAL PARENTERAL NUTRITION IV SCH (22:54)
[2017-09-04 00:12] VITALS: BP 135/75
[2017-09-04] MEDS: BLOOD SUGAR DIAGNOSTIC STRIP TEST SCH ×7 (00:47→23:46)
[2017-09-04] MEDS: DILTIAZEM HCL 90MG TABLET PO SCH ×5 (00:55→23:45)
[2017-09-04] MEDS: INSULIN REGULAR (HUMULIN R) 300UNITS/3ML SUBCUT SCH ×7 (00:58→23:46)
[2017-09-04] MEDS: IPRATROPIUM/ALBUTEROL 0.5-3(2.5)MG/3ML NEB HHN SCH ×4 (03:52→21:39)
[2017-09-04 04:00] VITALS: BP 110/68
[2017-09-04 07:41] VITALS: BP 138/68
[2017-09-04] MEDS: LOSARTAN POTASSIUM 100 MG TABLET PO SCH (09:27)
[2017-09-04] MEDS: LACTOBACILLUS GG CAPSULE PO SCH (09:27)
[2017-09-04] MEDS: INSULIN NPH (HUMULIN-N) 100 UNITS/ML 3ML VIAL SUBCUT SCH ×2 (09:39→21:34)
[2017-09-04 11:13] VITALS: BP 145/80
[2017-09-04] MEDS ORDERED: ACETAMINOPHEN 325MG TABLET PO PRN (13:00)
[2017-09-04 16:04] VITALS: BP 149/72
[2017-09-04] MEDS: NAPROXEN 500MG TABLET PO PRN (16:37)
[2017-09-04] MEDS: SODIUM CHLORIDE 0.45% 1,000 ML IV SCH (17:54)
[2017-09-04 20:29] VITALS: BP 141/75
[2017-09-04] MEDS ORDERED: TOTAL PARENTERAL NUTRITION IV SCH (21:00)
[2017-09-04] MEDS: TOTAL PARENTERAL NUTRITION IV SCH (21:00)
[2017-09-05] MEDS: IPRATROPIUM/ALBUTEROL 0.5-3(2.5)MG/3ML NEB HHN SCH ×5 (00:29→17:58)
[2017-09-05 00:46] VITALS: BP 129/66
[2017-09-05 04:00] VITALS: BP 124/71
[2017-09-05] MEDS: BLOOD SUGAR DIAGNOSTIC STRIP TEST SCH ×4 (04:00→16:00)
[2017-09-05] MEDS: INSULIN REGULAR (HUMULIN R) 300UNITS/3ML SUBCUT SCH ×4 (04:00→16:00)
[2017-09-05] MEDS: DILTIAZEM HCL 90MG TABLET PO SCH (05:47)
[2017-09-05 07:22] LABS: EOSINOPHILS % 4.4 % (0.0-5.0); HEMATOCRIT. 27.1 % (36.0-48.0); HEMOGLOBIN. 9.1 g/dL (12.0-16.0); LYMPHOCYTES % 29.9 % (20.0-50.0); MEAN CORPUSCULAR HEMOGLOBIN 29.2 pg (28.0-32.0); MEAN CORPUSCULAR VOLUME 86.5 fL (81.0-99.0); MEAN PLATELET VOLUME 7.8 fl (7.4-10.4); MONOCYTES % 12.6 % (2.0-8.0); NEUTROPHILS % 52.1 % (40.0-76.0); PLATELET 141 x1000/uL (130-400); RED BLOOD CELL COUNT 3.13 mill/uL (4.2-5.4); RED CELL DISTRIBUTION WIDTH 14.6 % (11.6-14.6)
[2017-09-05] MEDS: INSULIN NPH (HUMULIN-N) 100 UNITS/ML 3ML VIAL SUBCUT SCH (08:28)
[2017-09-05] MEDS: LOSARTAN POTASSIUM 100 MG TABLET PO SCH (08:31)
[2017-09-05] MEDS: LACTOBACILLUS GG CAPSULE PO SCH (08:31)
[2017-09-05 08:38] VITALS: BP 134/74
[2017-09-05 12:40] VITALS: BP 137/78
[2017-09-05] MEDS ORDERED: DILTIAZEM HCL 90MG TABLET PO SCH (14:00)
[2017-09-05 16:22] VITALS: BP 142/73
[2017-09-09] MEDS ORDERED: BLOOD SUGAR DIAGNOSTIC STRIP TEST SCH (07:00)
== END 2017-09-05 20:20 | DRG 444 ==
LOC: ER 12:53 → 6WST 18:31 → ENRESERV 18:39 → 6WST 08-29 08:07
PROVIDERS: ADMIT Internal Medicine; ATTEND Internal Medicine
PROC: BF141ZZ Fluoroscopy of Gallbladder, Bile Ducts and Pancreatic Ducts using Low Osmolar Contrast (ICD-10-PCS; 2017-08-17)
PROC: 0F798ZZ Dilation of Common Bile Duct, Via Natural or Artificial Opening Endoscopic (ICD-10-PCS; principal; 2017-08-17 15:00)
PROC: 05HY33Z Insertion of Infusion Device into Upper Vein, Percutaneous Approach (ICD-10-PCS; 2017-08-20)
PROC: B54MZZA Ultrasonography of Right Upper Extremity Veins, Guidance (ICD-10-PCS; 2017-08-20)
PROC: 0W9B3ZZ Drainage of Left Pleural Cavity, Percutaneous Approach (ICD-10-PCS; 2017-08-22)
PROC: 02HV33Z Insertion of Infusion Device into Superior Vena Cava, Percutaneous Approach (ICD-10-PCS; 2017-08-28)
PROC: B548ZZA Ultrasonography of Superior Vena Cava, Guidance (ICD-10-PCS; 2017-08-28)
DX: K80.63 Calculus of gallbladder and bile duct with acute cholecystitis with obstruction (principal); G93.41 Metabolic encephalopathy; N17.0 Acute kidney failure with tubular necrosis; K85.90 Acute pancreatitis without necrosis or infection, unspecified; E43 Unspecified severe protein-calorie malnutrition; J18.9 Pneumonia, unspecified organism; R18.8 Other ascites; N13.30 Unspecified hydronephrosis; J90 Pleural effusion, not elsewhere classified; I48.92 Unspecified atrial flutter; G62.81 Critical illness polyneuropathy; E87.2 Acidosis; E87.0 Hyperosmolality and hypernatremia; N13.4 Hydroureter; K57.30 Diverticulosis of large intestine without perforation or abscess without bleeding; N32.0 Bladder-neck obstruction; N18.9 Chronic kidney disease, unspecified; M19.019 Primary osteoarthritis, unspecified shoulder; M17.0 Bilateral primary osteoarthritis of knee; K82.8 Other specified diseases of gallbladder; K21.9 Gastro-esophageal reflux disease without esophagitis; I48.0 Paroxysmal atrial fibrillation; E87.6 Hypokalemia; E83.51 Hypocalcemia; E83.39 Other disorders of phosphorus metabolism; E11.65 Type 2 diabetes mellitus with hyperglycemia; E11.22 Type 2 diabetes mellitus with diabetic chronic kidney disease; R33.9 Retention of urine, unspecified; E11.42 Type 2 diabetes mellitus with diabetic polyneuropathy; D64.9 Anemia, unspecified; M54.40 Lumbago with sciatica, unspecified side; K59.00 Constipation, unspecified; F32.9 Major depressive disorder, single episode, unspecified; G89.29 Other chronic pain; E66.9 Obesity, unspecified; Z68.28 Body mass index [BMI] 28.0-28.9, adult; Z98.51 Tubal ligation status; Z86.73 Personal history of transient ischemic attack (TIA), and cerebral infarction without residual deficits; Z90.49 Acquired absence of other specified parts of digestive tract; Z82.49 Family history of ischemic heart disease and other diseases of the circulatory system; Z79.84 Long term (current) use of oral hypoglycemic drugs; Z88.8 Allergy status to other drugs, medicaments and biological substances; Z91.041 Radiographic dye allergy status; Z79.899 Other long term (current) drug therapy; Z79.82 Long term (current) use of aspirin
CPT/HCPCS: 32555; 36415; 36556; 36569; 36600; 71045; 71250; 74018; 74176; 74181; 74330; 76937; 77001; 78582; 80048; 80053; 80076; 80305; 81003; 82040; 82150; 82248; 82375; 82805; 82962; 83036; 83605; 83690; 83735; 83880; 84100; 84132; 84134; 84484; 85007; 85025; 85027; 85610; 85651; 85730; 86705; 86709; 86803; 87015; 87040; 87045; 87070; 87086; 87205; 87340; 87427; 87449; 87493; 92610; 93005; 93306; 93970; 94640; 96365; 97116; 97162; 97166; 97530; 99285; A6261; A9500; C1725; C1726; C1752; C1769; C1893; J0456; J1170; J1644; J1650; J1815; J1940; J1956; J2250; J2270; J2405; J2543; J2704; J3010; J3475; J3480; J3490; J7030; J7040; J7050; J7060; J7131; J7620; Q9967; A4315

== ENCOUNTER 2017-09-05 20:25 | Inpatient (IN) | payer MEDICARE, MEDICAID ==
[~2017-09-05] VITALS: Ht 172.7 cm; Wt 83.9 kg
[2017-09-05 20:25] VITALS: BP_SYST 134; BP_DIAS 90; BP_DIAS 94
[~2017-09-05 20:25] MED LIST: AMLO10TA80 PO; ASPI-1159 PO; IBUP-2030 PO; INDO50CA2 PO; POTA-79 PO; POTA8TAB4 PO; VALS320T15 PO
[2017-09-05] MEDS ORDERED: ACETAMINOPHEN 325MG TABLET PO PRN (21:30)
[2017-09-05] MEDS ORDERED: CLONIDINE 0.1MG TABLET PO PRN (21:30)
[2017-09-05] MEDS ORDERED: DEXTROSE 50% WATER 50ML SYRINGE IV PRN (21:30)
[2017-09-05] MEDS ORDERED: MAGNESIUM HYDROXIDE 400MG/5ML 30ML UDC PO PRN (21:30)
[2017-09-05] MEDS ORDERED: ONDANSETRON HCL 4MG/2ML VIAL IV PRN (21:30)
[2017-09-05] MEDS ORDERED: IPRATROPIUM/ALBUTEROL 0.5-3(2.5)MG/3ML NEB HHN PRN (21:30)
[2017-09-05] MEDS: INSULIN LISPRO 100 UNITS/ML SUBCUT SCH (22:30)
[2017-09-05] MEDS ORDERED: DOCUSATE SODIUM 100MG CAPSULE PO PRN (22:30)
[2017-09-05] MEDS: BLOOD SUGAR DIAGNOSTIC STRIP TEST SCH (22:30)
[2017-09-06] MEDS: DILTIAZEM HCL 90MG TABLET PO SCH ×4 (00:54→21:31)
[2017-09-06] MEDS: BLOOD SUGAR DIAGNOSTIC STRIP TEST SCH ×4 (05:54→18:59)
[2017-09-06] MEDS: INSULIN LISPRO 100 UNITS/ML SUBCUT SCH ×4 (05:55→21:00)
[2017-09-06] MEDS ORDERED: BLOOD SUGAR DIAGNOSTIC STRIP TEST SCH (06:30)
[2017-09-06 07:56] LABS: BASOPHILS % 0.9 % (0.0-2.0); EOSINOPHILS % 4.3 % (0.0-5.0); HEMATOCRIT. 28.2 % (36.0-48.0); HEMOGLOBIN. 9.3 g/dL (12.0-16.0); LYMPHOCYTES % 30.1 % (20.0-50.0); MEAN CORPUSCULAR HEMOGLOBIN 28.8 pg (28.0-32.0); MEAN CORPUSCULAR VOLUME 86.9 fL (81.0-99.0); MONOCYTES % 10.2 % (2.0-8.0); NEUTROPHILS % 54.5 % (40.0-76.0); PLATELET 166 x1000/uL (130-400); RED BLOOD CELL COUNT 3.25 mill/uL (4.2-5.4); RED CELL DISTRIBUTION WIDTH 14.1 % (11.6-14.6)
[2017-09-06 08:00] VITALS: BP 136/75
[2017-09-06 08:22] LABS: CHLORIDE 107 mEq/L (98-107)
[2017-09-06] MEDS ORDERED: INSULIN LISPRO 100 UNITS/ML SUBCUT SCH (09:00)
[2017-09-06] MEDS: LACTOBACILLUS GG CAPSULE PO SCH (09:12)
[2017-09-06] MEDS: LOSARTAN POTASSIUM 100 MG TABLET PO SCH (09:13)
[2017-09-06] MEDS: IPRATROPIUM/ALBUTEROL 0.5-3(2.5)MG/3ML NEB HHN SCH ×2 (13:34→20:05)
[2017-09-06 20:04] VITALS: BP 156/81
[2017-09-06] MEDS ORDERED: ENOXAPARIN 40MG/0.4ML SYR SUBCUT NR (20:30)
[2017-09-07] MEDS ORDERED: ENOXAPARIN 40MG/0.4ML SYR SUBCUT NR (00:30)
[2017-09-07 01:17] LABS: CLARITY URINE CLEAR (CLEAR); COLOR URINE YELLOW (YELLOW); KETONES URINE NEGATIVE (NEGATIVE); LEUKOCYTE ESTERASE URINE TRACE (NEGATIVE); NITRITE URINE NEGATIVE (NEGATIVE); OCCULT BLOOD URINE 1+ (NEGATIVE); PH URINE 5.5 (4.5-8.0); PROTEIN URINE TRACE (NEGATIVE); SPECIFIC GRAVITY URINE 1.013 (1.005-1.030); UROBILINOGEN URINE 0.2 E.U./dL (0.2-1.0)
[2017-09-07] MEDS: BLOOD SUGAR DIAGNOSTIC STRIP TEST SCH ×4 (05:33→21:00)
[2017-09-07] MEDS: DILTIAZEM HCL 90MG TABLET PO SCH ×3 (05:34→22:24)
[2017-09-07] MEDS: INSULIN LISPRO 100 UNITS/ML SUBCUT SCH ×4 (06:42→21:00)
[2017-09-07 07:08] LABS: BASOPHILS % 1.3 % (0.0-2.0); EOSINOPHILS % 5.8 % (0.0-5.0); HEMATOCRIT. 28.2 % (36.0-48.0); HEMOGLOBIN. 9.5 g/dL (12.0-16.0); LYMPHOCYTES % 34.2 % (20.0-50.0); MEAN CORPUSCULAR HEMOGLOBIN 29.2 pg (28.0-32.0); MEAN CORPUSCULAR VOLUME 86.6 fL (81.0-99.0); MONOCYTES % 11.6 % (2.0-8.0); NEUTROPHILS % 47.1 % (40.0-76.0); PLATELET 190 x1000/uL (130-400); RED BLOOD CELL COUNT 3.26 mill/uL (4.2-5.4); RED CELL DISTRIBUTION WIDTH 14.6 % (11.6-14.6)
[2017-09-07 07:47] LABS: CHLORIDE 108 mEq/L (98-107)
[2017-09-07 07:54] LABS: AMYLASE 98 IU/L (25-115)
[2017-09-07 08:00] VITALS: BP 148/80
[2017-09-07] MEDS: LOSARTAN POTASSIUM 100 MG TABLET PO SCH (08:56)
[2017-09-07] MEDS: LACTOBACILLUS GG CAPSULE PO SCH ×2 (08:56→17:00)
[2017-09-07] MEDS: IPRATROPIUM/ALBUTEROL 0.5-3(2.5)MG/3ML NEB HHN SCH ×3 (09:00→17:00)
[2017-09-07] MEDS ORDERED: ENOXAPARIN 40MG/0.4ML SYR SUBCUT SCH (09:00)
[2017-09-07] MEDS: ENOXAPARIN 80MG/0.8ML SYR SUBCUT SCH (11:40)
[2017-09-07 16:12] VITALS: BP 148/68
[2017-09-07 20:00] VITALS: BP 179/83
[2017-09-08] MEDS: ENOXAPARIN 80MG/0.8ML SYR SUBCUT SCH ×2 (01:27→14:17)
[2017-09-08] MEDS: DILTIAZEM HCL 90MG TABLET PO SCH ×2 (05:54→14:18)
[2017-09-08] MEDS: BLOOD SUGAR DIAGNOSTIC STRIP TEST SCH ×3 (05:55→17:49)
[2017-09-08] MEDS: INSULIN LISPRO 100 UNITS/ML SUBCUT SCH ×4 (05:55→21:00)
[2017-09-08 07:19] LABS: EOSINOPHILS % 5.9 % (0.0-5.0); HEMATOCRIT. 26.7 % (36.0-48.0); HEMOGLOBIN. 8.8 g/dL (12.0-16.0); LYMPHOCYTES % 37.7 % (20.0-50.0); MEAN CORPUSCULAR HEMOGLOBIN 28.5 pg (28.0-32.0); MEAN CORPUSCULAR VOLUME 85.9 fL (81.0-99.0); MEAN PLATELET VOLUME 7.9 fl (7.4-10.4); MONOCYTES % 12.3 % (2.0-8.0); NEUTROPHILS % 43.1 % (40.0-76.0); PLATELET 194 x1000/uL (130-400); RED CELL DISTRIBUTION WIDTH 14.1 % (11.6-14.6)
[2017-09-08 07:35] LABS: CHLORIDE 107 mEq/L (98-107)
[2017-09-08 07:47] LABS: PHOSPHORUS 3.3 mg/dL (2.5-4.9)
[2017-09-08 07:48] LABS: TOTAL IRON BINDING CAPACITY 289 ug/dL (250-450)
[2017-09-08 08:00] VITALS: BP 129/76
[2017-09-08] MEDS: IPRATROPIUM/ALBUTEROL 0.5-3(2.5)MG/3ML NEB HHN SCH ×4 (08:03→20:28)
[2017-09-08 08:06] LABS: FOLIC ACID (FOLATE) SERUM 13.7 ng/mL (>5.38)
[2017-09-08] MEDS: LOSARTAN POTASSIUM 100 MG TABLET PO SCH (09:23)
[2017-09-08] MEDS: BETHANECHOL CHLORIDE 25 MG TABLET PO SCH ×2 (14:18→18:14)
[2017-09-08] MEDS ORDERED: POTASSIUM CHLORIDE 20MEQ TABLET SR PO NR (16:30)
[2017-09-08] MEDS ORDERED: LEVOFLOXACIN 500MG TABLET PO NR (16:44)
[2017-09-08 20:00] VITALS: BP 143/84
[2017-09-09] MEDS: ENOXAPARIN 80MG/0.8ML SYR SUBCUT SCH ×2 (00:46→12:59)
[2017-09-09] MEDS: DILTIAZEM HCL 90MG TABLET PO SCH ×4 (01:03→21:32)
[2017-09-09] MEDS: BLOOD SUGAR DIAGNOSTIC STRIP TEST SCH ×4 (07:13→21:00)
[2017-09-09 08:00] VITALS: BP 131/88
[2017-09-09] MEDS: IPRATROPIUM/ALBUTEROL 0.5-3(2.5)MG/3ML NEB HHN SCH ×4 (09:00→21:30)
[2017-09-09] MEDS: LOSARTAN POTASSIUM 100 MG TABLET PO SCH (10:34)
[2017-09-09] MEDS: BETHANECHOL CHLORIDE 25 MG TABLET PO SCH ×3 (10:35→18:39)
[2017-09-09] MEDS: LACTOBACILLUS GG CAPSULE PO SCH (10:35)
[2017-09-09] MEDS ORDERED: LEVOFLOXACIN 250MG TABLET PO SCH (11:00)
[2017-09-09] MEDS: INSULIN LISPRO 100 UNITS/ML SUBCUT SCH ×3 (12:27→21:00)
[2017-09-09] MEDS: MAGNESIUM OXIDE 400MG TABLET PO SCH ×2 (18:39→21:33)
[2017-09-09 20:00] VITALS: BP 125/72
[2017-09-10] MEDS: ENOXAPARIN 80MG/0.8ML SYR SUBCUT SCH ×2 (00:45→12:12)
[2017-09-10] MEDS: DILTIAZEM HCL 90MG TABLET PO SCH ×3 (06:03→21:42)
[2017-09-10] MEDS: BLOOD SUGAR DIAGNOSTIC STRIP TEST SCH ×4 (06:53→21:43)
[2017-09-10 07:11] LABS: BASOPHILS % 0.8 % (0.0-2.0); EOSINOPHILS % 5.7 % (0.0-5.0); HEMATOCRIT. 29.6 % (36.0-48.0); HEMOGLOBIN. 9.8 g/dL (12.0-16.0); LYMPHOCYTES % 41.7 % (20.0-50.0); MEAN CORPUSCULAR HEMOGLOBIN 28.5 pg (28.0-32.0); MEAN CORPUSCULAR VOLUME 86.1 fL (81.0-99.0); MEAN PLATELET VOLUME 7.5 fl (7.4-10.4); NEUTROPHILS % 39.8 % (40.0-76.0); PLATELET 196 x1000/uL (130-400); RED BLOOD CELL COUNT 3.44 mill/uL (4.2-5.4); RED CELL DISTRIBUTION WIDTH 14.3 % (11.6-14.6)
[2017-09-10] MEDS: IPRATROPIUM/ALBUTEROL 0.5-3(2.5)MG/3ML NEB HHN SCH ×4 (07:21→21:00)
[2017-09-10 07:28] LABS: CHLORIDE 110 mEq/L (98-107)
[2017-09-10 07:34] LABS: PHOSPHORUS 2.9 mg/dL (2.5-4.9)
[2017-09-10 08:00] VITALS: BP 140/71
[2017-09-10] MEDS: INSULIN LISPRO 100 UNITS/ML SUBCUT SCH ×4 (09:00→21:00)
[2017-09-10] MEDS: LACTOBACILLUS GG CAPSULE PO SCH (09:17)
[2017-09-10] MEDS: MAGNESIUM OXIDE 400MG TABLET PO SCH ×2 (09:17→21:42)
[2017-09-10] MEDS: BETHANECHOL CHLORIDE 25 MG TABLET PO SCH ×3 (09:17→17:26)
[2017-09-10] MEDS: LOSARTAN POTASSIUM 100 MG TABLET PO SCH (09:17)
[2017-09-10] MEDS ORDERED: LIDOCAINE HCL 1% 20ML VIAL (Pyxis) INJ INFIL NR (12:45)
[2017-09-10] MEDS ORDERED: TRIAMCINOLONE ACETONIDE 40MG/ML 1ML VIAL IM NR (12:45)
[2017-09-10 20:00] VITALS: BP 153/76
[2017-09-11] MEDS: ENOXAPARIN 80MG/0.8ML SYR SUBCUT SCH ×3 (01:26→23:59)
[2017-09-11] MEDS: DILTIAZEM HCL 90MG TABLET PO SCH ×3 (06:00→21:20)
[2017-09-11] MEDS: BLOOD SUGAR DIAGNOSTIC STRIP TEST SCH (06:50)
[2017-09-11] MEDS: INSULIN LISPRO 100 UNITS/ML SUBCUT SCH ×2 (06:50→12:22)
[2017-09-11 08:00] VITALS: BP 141/83
[2017-09-11] MEDS: LACTOBACILLUS GG CAPSULE PO SCH (09:04)
[2017-09-11] MEDS: BETHANECHOL CHLORIDE 25 MG TABLET PO SCH ×3 (09:04→16:18)
[2017-09-11] MEDS: LOSARTAN POTASSIUM 100 MG TABLET PO SCH (09:04)
[2017-09-11] MEDS: MAGNESIUM OXIDE 400MG TABLET PO SCH ×2 (09:04→21:20)
[2017-09-11] MEDS: IPRATROPIUM/ALBUTEROL 0.5-3(2.5)MG/3ML NEB HHN SCH ×4 (09:45→20:18)
[2017-09-11] MEDS: LIDOCAINE 5% PATCH TOP SCH (11:48)
[2017-09-11 20:00] VITALS: BP 123/72
[2017-09-12] MEDS: DILTIAZEM HCL 90MG TABLET PO SCH ×3 (05:33→21:13)
[2017-09-12] MEDS ORDERED: BLOOD SUGAR DIAGNOSTIC STRIP TEST SCH (06:00)
[2017-09-12 07:06] LABS: BASOPHILS % 0.6 % (0.0-2.0); EOSINOPHILS % 6.3 % (0.0-5.0); HEMATOCRIT. 32.1 % (36.0-48.0); HEMOGLOBIN. 10.5 g/dL (12.0-16.0); LYMPHOCYTES % 48.1 % (20.0-50.0); MEAN CORPUSCULAR HEMOGLOBIN 28.3 pg (28.0-32.0); MEAN CORPUSCULAR VOLUME 86.4 fL (81.0-99.0); MEAN PLATELET VOLUME 7.8 fl (7.4-10.4); PLATELET 224 x1000/uL (130-400); RED BLOOD CELL COUNT 3.71 mill/uL (4.2-5.4); RED CELL DISTRIBUTION WIDTH 14.6 % (11.6-14.6)
[2017-09-12 07:25] LABS: CHLORIDE 107 mEq/L (98-107)
[2017-09-12 08:00] VITALS: BP 136/73
[2017-09-12] MEDS: IPRATROPIUM/ALBUTEROL 0.5-3(2.5)MG/3ML NEB HHN SCH ×4 (08:42→21:25)
[2017-09-12] MEDS: MAGNESIUM OXIDE 400MG TABLET PO SCH ×2 (08:48→21:13)
[2017-09-12] MEDS: LOSARTAN POTASSIUM 100 MG TABLET PO SCH (08:48)
[2017-09-12] MEDS: BETHANECHOL CHLORIDE 25 MG TABLET PO SCH ×3 (08:48→18:18)
[2017-09-12] MEDS: LACTOBACILLUS GG CAPSULE PO SCH (08:48)
[2017-09-12] MEDS: LIDOCAINE 5% PATCH TOP SCH (08:49)
[2017-09-12] MEDS: APIXABAN 5 MG TABLET PO SCH (18:18)
[2017-09-12 20:00] VITALS: BP 130/74
[2017-09-13] MEDS: DILTIAZEM HCL 90MG TABLET PO SCH ×3 (05:03→21:10)
[2017-09-13 07:53] VITALS: BP 120/74
[2017-09-13] MEDS: LIDOCAINE 5% PATCH TOP SCH (08:38)
[2017-09-13] MEDS: APIXABAN 5 MG TABLET PO SCH ×2 (08:39→17:13)
[2017-09-13] MEDS: LACTOBACILLUS GG CAPSULE PO SCH (08:39)
[2017-09-13] MEDS: MAGNESIUM OXIDE 400MG TABLET PO SCH (08:40)
[2017-09-13] MEDS: BETHANECHOL CHLORIDE 25 MG TABLET PO SCH ×3 (08:40→17:13)
[2017-09-13] MEDS: LOSARTAN POTASSIUM 100 MG TABLET PO SCH (08:40)
[2017-09-13] MEDS: IPRATROPIUM/ALBUTEROL 0.5-3(2.5)MG/3ML NEB HHN SCH ×4 (10:09→19:59)
[2017-09-13 20:43] VITALS: BP 122/64
[2017-09-14] MEDS: DILTIAZEM HCL 90MG TABLET PO SCH ×3 (05:44→21:14)
[2017-09-14] MEDS: IPRATROPIUM/ALBUTEROL 0.5-3(2.5)MG/3ML NEB HHN SCH ×4 (07:25→21:16)
[2017-09-14 07:34] LABS: BASOPHILS % 0.3 % (0.0-2.0); EOSINOPHILS % 0.5 % (0.0-5.0); HEMATOCRIT. 29.7 % (36.0-48.0); HEMOGLOBIN. 9.9 g/dL (12.0-16.0); LYMPHOCYTES % 36.3 % (20.0-50.0); MEAN CORPUSCULAR HEMOGLOBIN 28.8 pg (28.0-32.0); MEAN CORPUSCULAR VOLUME 86.1 fL (81.0-99.0); MONOCYTES % 7.3 % (2.0-8.0); NEUTROPHILS % 55.6 % (40.0-76.0); PLATELET 193 x1000/uL (130-400); RED BLOOD CELL COUNT 3.45 mill/uL (4.2-5.4); RED CELL DISTRIBUTION WIDTH 14.4 % (11.6-14.6)
[2017-09-14 07:44] LABS: CHLORIDE 108 mEq/L (98-107)
[2017-09-14 07:58] LABS: PHOSPHORUS 3.7 mg/dL (2.5-4.9)
[2017-09-14 08:00] VITALS: BP 125/67
[2017-09-14] MEDS: LIDOCAINE 5% PATCH TOP SCH (09:00)
[2017-09-14] MEDS: BETHANECHOL CHLORIDE 25 MG TABLET PO SCH ×3 (09:58→16:59)
[2017-09-14] MEDS: LACTOBACILLUS GG CAPSULE PO SCH (09:58)
[2017-09-14] MEDS: LOSARTAN POTASSIUM 100 MG TABLET PO SCH (09:58)
[2017-09-14] MEDS: APIXABAN 5 MG TABLET PO SCH ×2 (09:59→16:59)
[2017-09-14 20:00] VITALS: BP 134/71
[2017-09-15] MEDS: DILTIAZEM HCL 90MG TABLET PO SCH ×2 (05:21→13:07)
[2017-09-15 08:00] VITALS: BP 135/68
[2017-09-15] MEDS: LIDOCAINE 5% PATCH TOP SCH (09:00)
[2017-09-15] MEDS: IPRATROPIUM/ALBUTEROL 0.5-3(2.5)MG/3ML NEB HHN SCH ×2 (09:03→13:06)
[2017-09-15] MEDS: LOSARTAN POTASSIUM 100 MG TABLET PO SCH (09:21)
[2017-09-15] MEDS: BETHANECHOL CHLORIDE 25 MG TABLET PO SCH ×2 (09:21→13:05)
[2017-09-15] MEDS: LACTOBACILLUS GG CAPSULE PO SCH (09:21)
[2017-09-15] MEDS: APIXABAN 5 MG TABLET PO SCH (09:21)
[2017-09-15 12:05] VITALS: BP 135/68
[2017-09-17 04:18] LABS: 25-HYDROXY VITAMIN D3 21 ng/mL (.)
== END 2017-09-15 14:05 | disposition home health service (06) | DRG 73 ==
PROVIDERS: ADMIT Physical Medicine & Rehabilitation Spinal Cord Injury Medicine; ATTEND Internal Medicine
PROC: 3E0U33Z Introduction of Anti-inflammatory into Joints, Percutaneous Approach (ICD-10-PCS; principal; 2017-09-13)
DX: G62.81 Critical illness polyneuropathy (principal); G93.40 Encephalopathy, unspecified; K85.90 Acute pancreatitis without necrosis or infection, unspecified; E43 Unspecified severe protein-calorie malnutrition; J90 Pleural effusion, not elsewhere classified; N17.9 Acute kidney failure, unspecified; I48.92 Unspecified atrial flutter; K80.63 Calculus of gallbladder and bile duct with acute cholecystitis with obstruction; I82.411 Acute embolism and thrombosis of right femoral vein; E11.65 Type 2 diabetes mellitus with hyperglycemia; R33.9 Retention of urine, unspecified; M19.012 Primary osteoarthritis, left shoulder; M19.011 Primary osteoarthritis, right shoulder; M17.0 Bilateral primary osteoarthritis of knee; R41.89 Other symptoms and signs involving cognitive functions and awareness; R53.81 Other malaise; R26.9 Unspecified abnormalities of gait and mobility; I48.0 Paroxysmal atrial fibrillation; D64.9 Anemia, unspecified; K82.8 Other specified diseases of gallbladder; M70.62 Trochanteric bursitis, left hip; Y93.89 Activity, other specified; E83.42 Hypomagnesemia; M16.12 Unilateral primary osteoarthritis, left hip; N18.9 Chronic kidney disease, unspecified; I12.9 Hypertensive chronic kidney disease with stage 1 through stage 4 chronic kidney disease, or unspecified chronic kidney disease; F32.9 Major depressive disorder, single episode, unspecified; F39 Unspecified mood [affective] disorder; B95.2 Enterococcus as the cause of diseases classified elsewhere; G30.9 Alzheimer's disease, unspecified; F02.80 Dementia in other diseases classified elsewhere, unspecified severity, without behavioral disturbance, psychotic disturbance, mood disturbance, and anxiety; E11.22 Type 2 diabetes mellitus with diabetic chronic kidney disease; E86.9 Volume depletion, unspecified; E87.6 Hypokalemia; Z79.01 Long term (current) use of anticoagulants; Z86.73 Personal history of transient ischemic attack (TIA), and cerebral infarction without residual deficits; Z98.51 Tubal ligation status; Z88.6 Allergy status to analgesic agent; Z88.8 Allergy status to other drugs, medicaments and biological substances; Z91.018 Allergy to other foods; Z91.041 Radiographic dye allergy status; Z79.899 Other long term (current) drug therapy; Z79.51 Long term (current) use of inhaled steroids; Z79.4 Long term (current) use of insulin; Z82.49 Family history of ischemic heart disease and other diseases of the circulatory system; Z90.49 Acquired absence of other specified parts of digestive tract; Z68.28 Body mass index [BMI] 28.0-28.9, adult
CPT/HCPCS: 36415; 73502; 80048; 80053; 81003; 82150; 82306; 82607; 82728; 82746; 82962; 83540; 83550; 83690; 83735; 84100; 84134; 84443; 84630; 85025; 87077; 87086; 87186; 92523; 93005; 93970; 94640; 97110; 97112; 97116; 97162; 97167; 97530; 97535; G0515; J1650; J3301; J3490; J7620

== ENCOUNTER 2017-11-30 05:51 | Day surgery (SDC) | payer MEDICARE, MEDICAID ==
[~2017-11-30] VITALS: Ht 172.7 cm; Wt 80.7 kg
[~2017-11-30 05:51] MED LIST changes: -AMLO10TA80 PO; +APIX5TAB PO; +CHOL100036 PO; +CHOL100044 PO; +DILT90CA PO; -IBUP-2030 PO; -INDO50CA2 PO; +LOSA100T14 PO; -POTA-79 PO; -POTA8TAB4 PO; +TRIA1TAB92 PO; -VALS320T15 PO
[2017-11-30 06:51] LABS: CLARITY URINE CLEAR (CLEAR); COLOR URINE YELLOW (YELLOW); KETONES URINE NEGATIVE (NEGATIVE); LEUKOCYTE ESTERASE URINE TRACE (NEGATIVE); NITRITE URINE NEGATIVE (NEGATIVE); OCCULT BLOOD URINE NEGATIVE (NEGATIVE); PH URINE 6.5 (4.5-8.0); PROTEIN URINE NEGATIVE (NEGATIVE); UROBILINOGEN URINE 0.2 E.U./dL (0.2-1.0)
[2017-11-30 07:00] LABS: UCG SCREEN NEGATIVE
[2017-11-30] MEDS ORDERED: SUCCINYLCHOLINE CHLORIDE 200MG/10ML IV ONE (08:31)
[2017-11-30] MEDS ORDERED: FENTANYL CITRATE/PF 50MCG/ML 2ML VIAL ONE (08:31)
[2017-11-30] MEDS ORDERED: NEOSTIGMINE METHYLSULFATE 1MG/ML 10 ML VIAL ONE (08:31)
[2017-11-30] MEDS ORDERED: EPHEDRINE SULFATE 50MG/ML VIAL ONE (08:31)
[2017-11-30] MEDS ORDERED: SODIUM CHLORIDE 0.9% 10ML VIAL ONE (08:31)
[2017-11-30] MEDS ORDERED: METOCLOPRAMIDE HCL 10MG/2ML VIAL ONE (08:31)
[2017-11-30] MEDS ORDERED: GLYCOPYRROLATE 0.2 MG/ML 2ML VIAL ONE (08:31)
[2017-11-30] MEDS ORDERED: PROPOFOL 200MG/20ML VIAL IV ONE (08:31)
[2017-11-30] MEDS ORDERED: LIDOCAINE HCL/PF 1% 10 MG/ML 5ML VIAL ONE (08:31)
[2017-11-30] MEDS ORDERED: PHENYLEPHRINE HCL 10 MG/ML 1ML (IV VIAL) IV ONE (08:31)
[2017-11-30] MEDS ORDERED: MIDAZOLAM HCL 2 MG/2 ML VIAL ONE (08:31)
[2017-11-30] MEDS ORDERED: ONDANSETRON HCL 4MG/2ML INJ ONE (08:31)
[2017-11-30] MEDS ORDERED: ROCURONIUM BROMIDE 10MG/ML VIAL 5ML IV ONE (08:31)
[2017-11-30] MEDS ORDERED: CEFAZOLIN SODIUM 1000MG/VIAL ONE (08:31)
[2017-11-30] MEDS ORDERED: SODIUM CHLORIDE 0.9% 1,000 ML IV ONE (09:17)
[2017-11-30] MEDS ORDERED: MEPERIDINE HCL/PF 25MG/ML CPJ IV PRN ×2 (09:30)
[2017-11-30] MEDS ORDERED: ONDANSETRON HCL 4MG/2ML INJ IV PRN (09:30)
== END 2017-11-30 11:05 | disposition home or self-care (01) ==
LOC: OR 05:51
PROVIDERS: ATTEND Obstetrics & Gynecology Obstetrics
DX: N88.9 Noninflammatory disorder of cervix uteri, unspecified (principal); E66.3 Overweight; I10 Essential (primary) hypertension; E11.42 Type 2 diabetes mellitus with diabetic polyneuropathy; F32.9 Major depressive disorder, single episode, unspecified; Z88.5 Allergy status to narcotic agent; I48.0 Paroxysmal atrial fibrillation; Z88.8 Allergy status to other drugs, medicaments and biological substances; Z79.899 Other long term (current) drug therapy; Z79.82 Long term (current) use of aspirin; Z90.49 Acquired absence of other specified parts of digestive tract; Z88.6 Allergy status to analgesic agent; Z91.018 Allergy to other foods; M17.0 Bilateral primary osteoarthritis of knee; Z79.01 Long term (current) use of anticoagulants; Z79.51 Long term (current) use of inhaled steroids; Z79.4 Long term (current) use of insulin
CPT/HCPCS: 58558; 81003; 81025; 82962; 88305; A4216; J0330; J0690; J2250; J2405; J2765; J3010; J3490; J7030; J2370; J2704; J2710

== ENCOUNTER 2017-12-08 06:10 | Day surgery (SDC) | payer MEDICARE, MEDICAID ==
[~2017-12-08] VITALS: Ht 172.7 cm; Wt 80.7 kg
[2017-12-08] MEDS ORDERED: SKIN ADHESIVE 0.7 GM EA TOP ONE ×2 (08:42→08:43)
[2017-12-08] MEDS ORDERED: BUPIVACAINE HCL 0.5% (5MG/ML) 50ML ONE (08:44)
[2017-12-08] MEDS ORDERED: ONDANSETRON HCL 4MG/2ML INJ IV PRN (09:00)
[2017-12-08] MEDS ORDERED: FENTANYL CITRATE/PF 50MCG/ML 2ML VIAL IV PRN (09:00)
[2017-12-08] MEDS ORDERED: MORPHINE SULFATE 4 MG/ML CPJ (NOT FOR IM USE) IV PRN (09:00)
[2017-12-08] MEDS ORDERED: FENTANYL CITRATE/PF 50MCG/ML 2ML VIAL ONE (09:21)
[2017-12-08 12:32] VITALS: BP 145/80
== END 2017-12-08 13:25 | disposition home or self-care (01) ==
LOC: OR 06:10
PROVIDERS: ATTEND Surgery
DX: K80.10 Calculus of gallbladder with chronic cholecystitis without obstruction (principal); I10 Essential (primary) hypertension; F32.9 Major depressive disorder, single episode, unspecified; E11.9 Type 2 diabetes mellitus without complications; E66.3 Overweight; Z79.899 Other long term (current) drug therapy; Z90.49 Acquired absence of other specified parts of digestive tract; Z88.6 Allergy status to analgesic agent; Z88.5 Allergy status to narcotic agent; Z88.8 Allergy status to other drugs, medicaments and biological substances; Z91.018 Allergy to other foods; Z79.01 Long term (current) use of anticoagulants; Z79.82 Long term (current) use of aspirin; Z79.51 Long term (current) use of inhaled steroids; Z79.4 Long term (current) use of insulin
CPT/HCPCS: 47562; 82962; 88304; J2405; J3010; J3490; J7030; J7120

== ENCOUNTER → 2018-03-30 | Outpatient (CLI) | payer MEDICARE, MEDICAID ==
[~2018-03-30] MED LIST changes: +AMLO5TAB88 PO; -CHOL100036 PO; +NEBI5TAB3 PO; +VALS1TAB80 PO
== END | disposition home or self-care (01) ==
LOC: CT 07:36
PROVIDERS: ATTEND Surgery
DX: K57.30 Diverticulosis of large intestine without perforation or abscess without bleeding (principal); D25.9 Leiomyoma of uterus, unspecified; N13.39 Other hydronephrosis; N28.1 Cyst of kidney, acquired
CPT/HCPCS: 74176

== ENCOUNTER 2018-04-19 06:10 | Day surgery (SDC) | payer MEDICARE, MEDICAID ==
[~2018-04-19] VITALS: Ht 171.4 cm; Wt 83.5 kg
[~2018-04-19 06:10] MED LIST changes: -AMLO5TAB88 PO; -NEBI5TAB3 PO; -VALS1TAB80 PO
[2018-04-19] MEDS ORDERED: NEBI5TAB3 PO (06:17)
[2018-04-19] MEDS ORDERED: LIDOCAINE HCL/PF 1% 10 MG/ML 5ML VIAL ONE (06:40)
[2018-04-19] MEDS ORDERED: PROPOFOL 200MG/20ML VIAL IV ONE (06:40)
[2018-04-19] MEDS ORDERED: FENTANYL CITRATE/PF 50MCG/ML 2ML VIAL ONE (06:42)
[2018-04-19] MEDS ORDERED: MIDAZOLAM HCL 2 MG/2 ML VIAL ONE ×2 (06:42→07:48)
[2018-04-19] MEDS ORDERED: CEFAZOLIN SODIUM 1000MG/VIAL ONE (06:47)
[2018-04-19] MEDS ORDERED: SODIUM CHLORIDE 0.9% 10ML VIAL ONE (06:47)
[2018-04-19] MEDS ORDERED: LACTATED RINGERS 1,000 ML IV SCH (07:00)
[2018-04-19] MEDS ORDERED: LIDOCAINE HCL 1% 20ML VIAL (Pyxis) INJ ONE (07:05)
[2018-04-19] MEDS ORDERED: BACITRACIN 50,000 UNITS/VIAL ONE (07:06)
[2018-04-19] MEDS ORDERED: BETAMETHASONE ACET/BETAMET 30 MG/5 ML VIAL IM ONE (07:06)
[2018-04-19] MEDS ORDERED: NORMAL SALINE 0.9% 10 ML SYR ONE (07:06)
[2018-04-19] MEDS ORDERED: BUPIVACAINE HCL/PF 0.5% (5MG/ML) 10ML ONE (07:06)
[2018-04-19] MEDS ORDERED: FENTANYL CITRATE/PF 50MCG/ML 2ML VIAL IV PRN (09:00)
[2018-04-26] MEDS ORDERED: AMLO5TAB88 PO (10:12)
[2018-04-26] MEDS ORDERED: VALS1TAB80 PO (10:12)
== END 2018-04-19 10:45 | disposition home or self-care (01) ==
LOC: OR 06:10
PROVIDERS: ATTEND Podiatrist Foot & Ankle Surgery
DX: M21.611 Bunion of right foot (principal); R73.9 Hyperglycemia, unspecified; I10 Essential (primary) hypertension; I48.91 Unspecified atrial fibrillation; F32.9 Major depressive disorder, single episode, unspecified
CPT/HCPCS: 28296; 82962; 88300; 93005; J0690; J0702; J2250; J2704; J3010; J3490

== ENCOUNTER → 2018-04-26 | Day surgery (SDC) | payer MEDICARE, MEDICAID ==
[~2018-04-26] VITALS: Ht 170.2 cm; Wt 84.8 kg
[2018-04-26] VITALS (14 sets, daily range): BP systolic 153–183; BP diastolic 73–92
[~2018-04-26] MED LIST changes: +AMLO5TAB88 PO; -APIX5TAB PO; +FENTANYL CITRATE/PF 50MCG/ML 2ML VIAL IV ONE; +FENTANYL CITRATE/PF 50MCG/ML 2ML VIAL ONE; +LIDOCAINE HCL 1% 20ML VIAL (Pyxis) INJ ONE; +LIDOCAINE HCL/EPINEPHRINE 1%-EPI 1:100,000 20 ML VIAL ONE; -LOSA100T14 PO; +NEBI5TAB3 PO; +SODIUM BICARBONATE 4% (2.4MEQ) 5ML VIAL IV ONE; -TRIA1TAB92 PO; +VALS1TAB80 PO
== END | disposition home or self-care (01) ==
LOC: RAD 08:17
PROVIDERS: ATTEND Internal Medicine
DX: J98.4 Other disorders of lung (principal); F32.9 Major depressive disorder, single episode, unspecified; I12.9 Hypertensive chronic kidney disease with stage 1 through stage 4 chronic kidney disease, or unspecified chronic kidney disease; E11.22 Type 2 diabetes mellitus with diabetic chronic kidney disease; N18.9 Chronic kidney disease, unspecified; M19.011 Primary osteoarthritis, right shoulder; M19.012 Primary osteoarthritis, left shoulder; K21.9 Gastro-esophageal reflux disease without esophagitis; Z79.4 Long term (current) use of insulin; Z79.82 Long term (current) use of aspirin; Z79.899 Other long term (current) drug therapy; Z88.3 Allergy status to other anti-infective agents; Z88.8 Allergy status to other drugs, medicaments and biological substances; Z91.018 Allergy to other foods; Z86.73 Personal history of transient ischemic attack (TIA), and cerebral infarction without residual deficits; Z87.01 Personal history of pneumonia (recurrent); Z98.51 Tubal ligation status; Z82.49 Family history of ischemic heart disease and other diseases of the circulatory system
CPT/HCPCS: 32405; 71045; 77012; 88305; 88312; J3010; J3490; J7050